=== PATIENT | female | born 1930 | race African-American/Black ===

== ENCOUNTER 2017-03-19 09:12 | Inpatient (IN) ==
--- NOTE | 2017-03-19 09:34 | EKG Report ---
Stationary ECG Study [facility] ER Test Date: 03/19/2017 9:27:13 AM Pat Name: PJ LAW Department: Room: Gender: F [employer] Specialist: Aracelis Gongora : 1930 Requested by: Gumaro Schuster Order Number: [id number] Reading MD: UYEN PHILLIPS Intervals [place] Rate: 72 P: 58 CA: 310 QRS: -48 QRSD: 109 T: -26 QT: 398 QTc: 422 Interpretive Statements SINUS RHYTHM WITH FIRST DEGREE AV BLOCK ABNORMAL LEFT AXIS DEVIATION NONSPECIFIC T WAVE ABNORMALITY Electronically Signed On 03-19-17 10:30:45 CDT by UYEN PHILLIPS [email or web address]
--- NOTE | 2017-03-19 10:43 | XRay Report ---
Exam: XR chest 2V Date: 03/19/2017 9:31 AM Indication: Shortness of breath Comparison: 05/06/2016 Technical: PA lateral Findings: Mild cardiac enlargement present. Low volume effusions and likely change infiltrates are present bilaterally. ASVD is present. There is calcification in the right paratracheal region. Epidural catheter leads are present in the mid thoracic spine. No pneumothorax. Impression: 1. Bibasilar atelectatic change this could represent infiltrate or possibly a component of the mild CHF. This does represent a change compared to previous study. I favor this to represent a component of cardiac decompensation 2. Cardiomegaly 3. Stable stable epidural catheter leads. PROCEDURE INTERPRETED AT [facility] DEPARTMENT OF RADIOLOGY Final Report Signed by: Dr. Tyler Gilbert
--- NOTE | 2017-03-19 10:53 | Emergency Department Note ---
ICong Hilary, am scribing for, and in the presence of, Tiana Peoples DO 10: 50. IShelton Debra, DO, personally performed the services described in this documentation, ascribed by Halima Gar in my presence, and it is both accurate and complete . Arrival - Arrival Chief Complaint: Shortness of Breath Stated Complaint: sob ED Nursing Triage Note: Pt c/o SOB, Nausea, vomiting, and broke out into a sweat this am. Denies CP. Mode of Arrival: Wheelchair Limitations: No Limitations Source: Patient, RN Notes Reviewed - History of Present Illness HPI Narrative: Pt is a 86 y/o female preseting to the ED with c/o diaphoresis which onset around 0700. Pt states that she thinks she had a heart attack because she woke up sweating. She confirms diaphoresis, nausea and vomiting but denies chest pain or abdominal pain. No other complaints or problems stated in the ED. Onset (ago): hour(s) Consistency: constant Severity: mild Severity scale (1-10): 1 Allergies/Adverse Reactions: Allergies Allergy/AdvReac Type Severity Reaction Status Date / Time No Known Allergies Allergy Verified 10/27/16 09:16 Home Medications: Home Medications Medication Instructions Recorded Confirmed Type Apixaban [Eliquis] 1 tablet PO BID 09/23/15 03/19/17 History Aspirin EC Tab 81 mg PO DAILY 09/23/15 03/19/17 History amLODIPine [Norvasc] 10 mg PO DAILY 09/23/15 03/19/17 History Pantoprazole Tab [Protonix Tab] 40 mg PO DAILY 05/03/16 03/19/17 History Cetirizine HCl [Cetirizine Tab] 10 mg PO DAILY 03/13/17 03/19/17 History Dicyclomine Cap/Tab [Bentyl 20 mg PO QID PRN #20 tablet 03/13/17 03/19/17 Rx Cap/Tab] Metoprolol Succinate Xl [Toprol Xl] 25 mg PO DAILY 03/13/17 03/19/17 History Ondansetron [Ondansetron Odt] 8 mg PO Q4H PRN #10 tab.rapdis 03/13/17 03/19/17 Rx traMADol TAB [Ultram] 50 mg PO Q6H PRN 03/13/17 03/19/17 History Review of System - Review of System 12 point system: reviewed and no additional remarkable complaints except as stated - Review of System Constitutional: Absent: chills, fever Cardiovascular: Absent: chest pain Gastrointestinal: Present: nausea, vomiting. Absent: abdominal pain Medical,Surgical,& Family Hx - Medical History Cardio: History of: Cardiac Dysrhythmia (atrial fibrillation, paroxysmal), Hypertension, [place] Psychological: History of: Anxiety Disorders, Psychiatric Problems (Nervous breakdown x2.) Neurology: History of: Cerebrovascular Accident, TIA HEENT: History of: HEENT Problems (Past nosebleeds (severe)) Endocrine: History of: Dyslipidemia - Family History Family History: Reports;: Family Hypertension - Social History Smoking Status: Never smoker Exam Vital Signs: Vital Signs Temperature 97.8 F 03/19/17 10:56 Pulse Rate 72 03/19/17 10:56 Respiratory Rate 22 03/19/17 10:56 Blood Pressure 146/69 03/19/17 10:56 O2 Sat by Pulse Oximetry 87 L 03/19/17 09:25 - General General appearance: alert, in no apparent distress - Head Head exam: Present: atraumatic, normocephalic - Eye Eye exam: Present: normal appearance, PERRL, EOMI - ENT ENT exam: Present: mucous membranes moist, TM's normal bilaterally. Absent: mucous membranes dry - Neck Neck exam: Present: full ROM, trachea midline. Absent: tenderness - Chest Chest inspection: Present: symmetric chest wall rise. Absent: tenderness - Respiratory Respiratory exam: Present: wheezes. Absent: normal lung sounds bilaterally ( expiratory wheezing, greater on the left than right), respiratory distress - Cardiovascular Cardiovascular exam: Present: regular rate, normal rhythm, normal heart sounds. Absent: murmur, rubs, gallop - Abdominal Exam Abdominal exam: Present: soft, normal bowel sounds. Absent: distention, tenderness - Extremities Exam Extremities exam: Present: full ROM, pedal edema (+1 non pitting edema). Absent : tenderness - Back Exam Back exam: Present: full ROM. Absent: tenderness - Neurological Exam Neurological exam: Present: alert, oriented X3, CN II-XII intact. Absent: motor sensory deficit - Psychiatric Psychiatric exam: Present: normal affect, normal mood - Skin Skin exam: Present: warm, dry, intact, normal color. Absent: rash Course Course Narrative: spoke with hospitalist, who will see pt. Results - Labs CBC & BMP: 03/19/17 10:42 03/19/17 10:42 Lab Results: I have reviewed the patients labs Labs: Laboratory Tests 03/19/17 03/19/17 10:42 10:42 WBC 9.6 RBC 4.80 Hgb 12.6 Hct 39.7 MCV 82.7 L MCH 26 L MCHC 31.7 L RDW 18.6 H Plt Count 187 Neut % (Auto) 78.3 H Lymph % (Auto) 10.4 L Neut # (Auto) 7.5 H Lymph # (Auto) 1.0 L [place] # (Auto) 1.0 H INR 1.1 PT Patient/Control Mix 11.4 D-Dimer, Quantitative 1.1 Circ Anticoag PTT 31.3 Laboratory Tests 03/19/17 03/19/17 10:42 10:42 Sodium 139 Potassium 4.0 Chloride 104 Carbon Dioxide 29 BUN 11 Troponin I 0.271 H B-Natriuretic Peptide 1026 H Total Protein 6.7 Albumin 3.3 L Albumin/Globulin Ratio 0.9 L - Diagnostic Findings Procedure: Chest x-ray: report reviewed by me (1. Bibasilar atelectatic change this could represent infiltrate or possibly a component of the mild CHF. This does represent a change compared to previous study. I favor this to represent a component of cardiac decompensation 2. Cardiomegaly 3. Stable stable epidural catheter leads.) Disposition Clinical Impression: Congestive heart failure, Elevated troponin Case discussed with: patient, patient's family Disposition: Still a Patient Condition: Stable Time of Disposition: 12:13
[2017-03-19 10:59] LABS: Basophils % 0.3 % (0.0-0.8); Eosinophils # 0.1 10*3/uL (0.0-0.87); Eosinophils % 0.6 % (0.00-10.9); Hematocrit 39.7 VOL% (35.7-47.0); Hemoglobin 12.6 GM/DL (12.0-16.0); Immature Granulocytes % 0.5 %; Immature Granulocytes Absolute 0.05 #; Lymphocytes % 10.4 % (21.3-54.2); Mean Corpuscular HGB Conc 31.7 GM/DL (32-36); Mean Corpuscular Hemoglobin 26 PG (27-34); Mean Corpuscular Volume 82.7 FL (87-102); Monocytes % 9.9 % (1.7-12.7); Neutrophils # 7.5 10*3/uL (1.4-7.4); Neutrophils % 78.3 % (38.7-73.9); Platelet Count 187 T/CUMM (130-400); Red Cell Distribution Width 18.6 % (9.3-17.3); White Blood Count 9.6 T/CUMM (4-12)
[2017-03-19 11:24] LABS: D-Dimer 1.1 MG/L FEU; INR 1.1; PT Patient Result 11.4 SECS; Partial Thromboplastin Time 31.3 SECS (0-40)
[2017-03-19 11:34] LABS: Alanine Aminotransferase 15 U/L (13-56); Albumin 3.3 G/DL (3.4-5.0); Alkaline Phosphatase 91 U/L (45-117); Aspartate Amino Transferase 20 U/L (0-37); Blood Urea Nitrogen 11 MG/DL (7-18); Calcium 8.8 MG/DL (8.5-10.1); Glucose 99 MG/DL (74-106); Osmolality,Calculated 275.5 MOS/KG (273-304); Sodium 139 MMOL/L (136-145); Total Protein 6.7 G/DL (6.4-8.3)
[2017-03-19 11:39] LABS: Troponin I Only 0.271 NG/ML (0.00-0.045)
[2017-03-19] MEDS ORDERED: ENOXAPARIN 60 MG/0.6 ML SYRINGE SUBCUT STA (12:12)
[2017-03-19] MEDS ORDERED: ENOXAPARIN 60 MG/0.6 ML SYRINGE ONE (12:21)
--- NOTE | 2017-03-19 12:52 | Hospitalist History & Physical ---
Assessment and Plan - Time spent with patient Time spent with patient: Greater than 30 minutes (1) Congestive heart failure Status: Acute Assessment and plan: Elevated BNP, shortness of breath this a.m. Admit to hospitalist services. Will consult Cardiology (Dr Ureña patient). Will continue home medications and place on Telemetry for continous monitoring. PRN zofran for nausea. oxygen. diuretics. Will discuss with Dr Espinoza for further recommendations for management. Current Visit: Yes (2) Elevated troponin Status: Acute Assessment and plan: Consulted Cardiology. (patient of dr Ureña), Lovenox given in the ER, will repeat tropinin series and a.m. labs, EKG, and DVT prophylaxis. Current Visit: Yes (3) Nausea Status: Acute Assessment and plan: PRN zofran for coverage of any new nausea. Current Visit: No History of Present Illness Chief complaint: shortness of breath History of present illness: Ms. Hobson is a very pleasant 86 year old AA female presented to [facility] ED for further evaluation of shortness of breath. She sat up this a.m. on the side of the bed about 7 this morning, "felt short of breath and uncomfortable". She went to take a bath but did not make her feel better, continued to feel short of breath and started to feel "sweaty, nausea, and gagged a couple of times but was unable to vomit". Medical history Afib ( paroxymal), hypertension, [place], anxiety disorder, TIA, CVA, dyslipidemia. She reported after starting to feel sweaty and nausea she ask her sister to bring her to the ED because she was concerned about having a heart attack again. At the time of ED presentation patient was evaluated and noted stable Vital signs without any fever. EKG ws reviewed by Dr Peoples and was noted to have regular rate and rhythm. Labs: WBC 9.6, hemoglobin 12.6, hematocrit 39.7, platelets 187. INR 1.1, PT 11.4, PTT 31.3, d-dimer 1.1. Sodium 139, potassium 4.0, chloride 104, carbon dioxide 29, anion gap 10, BUN 11, creatinine 1.0, AST 20, ALT 15, alkaline phosphate 91, CK-MB 1.7, troponin 0.271, BNP 1026, albumin 3.3. chest xray: Bibasilar atelectatic change this could represent infiltrate or possible component of mild CHF, this does represent a change compared to previous study, favor to represent component of cardiac decompensation, cardiomegaly, stable epidural catheter leads. After brief discussion with Dr Peoples Er physician and Dr Espinoza, Hospitalist physician, the patient will be admitted to the hospitalist services for further evaluation. Cardiology will be consulted, patient of Dr Ureña. Medications will be reviewed and reconciliation to follow. Code Status: Full Code. Home Medications Medication Instructions Recorded Confirmed Type Apixaban [Eliquis] 1 tablet PO BID 09/23/15 03/19/17 History Aspirin EC Tab 81 mg PO DAILY 09/23/15 03/19/17 History amLODIPine [Norvasc] 10 mg PO DAILY 09/23/15 03/19/17 History Pantoprazole Tab [Protonix Tab] 40 mg PO DAILY 05/03/16 03/19/17 History Cetirizine HCl [Cetirizine Tab] 10 mg PO DAILY 03/13/17 03/19/17 History Dicyclomine Cap/Tab [Bentyl 20 mg PO QID PRN #20 tablet 03/13/17 03/19/17 Rx Cap/Tab] Metoprolol Succinate Xl [Toprol Xl] 25 mg PO DAILY 03/13/17 03/19/17 History Ondansetron [Ondansetron Odt] 8 mg PO Q4H PRN #10 tab.rapdis 03/13/17 03/19/17 Rx traMADol TAB [Ultram] 50 mg PO Q6H PRN 03/13/17 03/19/17 History Allergies Allergy/AdvReac Type Severity Reaction Status Date / Time No Known Allergies Allergy Verified 10/27/16 09:16 Medical,Surgical,& Family Hx - Medical History Cardio: History of: Cardiac Dysrhythmia (atrial fibrillation, paroxysmal), Hypertension, [place] Psychological: History of: Anxiety Disorders, Psychiatric Problems (Nervous breakdown x2.) Neurology: History of: Cerebrovascular Accident, TIA HEENT: History of: HEENT Problems (Past nosebleeds (severe)) Endocrine: History of: Dyslipidemia - Family History Family History: Reports;: Family Hypertension - Social History Smoking Status: Never smoker Frequency of Alcohol Use: None Type of Drug Use: None Review of systems: ROS completed and pertinent positives and negatives documented in the HPI. Exam - Constitutional Vitals: Period Temp Pulse Resp BP Sys/Bridges Pulse Ox Last 24 Hr 97.8 F-97.8 F 72-72 22-22 146-146/69-69 87 General appearance: no acute distress, over weight - Head Head exam: Present: normal inspection - Eye Eye exam: Present: EOMI Pupils: Present: SARI - Neck Neck exam: Present: normal inspection - Respiratory Respiratory exam: Present: clear to auscultation bilaterally. Absent: accessory muscle use - Cardiovascular Cardiovascular exam: Present: regular rate and rhythm - GI/Abdominal GI/Abdominal exam: Present: normal bowel sounds, soft. Absent: tenderness, rebound - Extremities Exam Extremities exam: Present: edema (left lower leg 1+, right lower leg trace edema ) - Neurological Exam Neurological exam: Present: alert, oriented X3 - Psychiatric Psychiatric exam: Present: normal affect, normal mood - Skin Skin exam: Present: normal color, warm, dry Results - Labs CBC & BMP: 03/19/17 10:42 03/19/17 10:42 Lab Results: I have reviewed the past 24 hour labs - Diagnostic Findings Procedure: Chest x-ray: report reviewed by me (Bibasilar atelectatic change this could represent infiltrate or possible a component of the mild CHF, this does represent a change compared to previous study, does represent a change compared to previous study, I favor this to represent a component of cardiac decompensation, cardiomegaly, stable epidural catheter lead.)
[2017-03-19] MEDS ORDERED: MORPHINE 2 MG/1 ML SYRINGE IV PRN (13:21)
[2017-03-19] MEDS ORDERED: ZALEPLON 5 MG CAPSULE PO PRN (13:21)
[2017-03-19] MEDS ORDERED: ACETAMINOPHEN 325 MG TABLET PO PRN (13:21)
[2017-03-19] MEDS ORDERED: DOCUSATE SODIUM 100 MG CAPSULE PO PRN (13:21)
[2017-03-19] MEDS ORDERED: DICYCLOMINE 20 MG TABLET PO PRN (13:27)
[2017-03-19] MEDS ORDERED: ONDANSETRON ODT 4 MG TABLET PO PRN (13:27)
[2017-03-19 15:52] LABS: Troponin I Only 0.269 NG/ML (0.00-0.045)
--- NOTE | 2017-03-19 16:21 | Cardiology Consult Note ---
Epi Santo Vanessa, RN, am scribing for, and in the presence of, Donato Kelly MD 16:21. Assessment and Plan - Time spent with patient Time spent with patient: Greater than 30 minutes (Date of assessment, planning, documentation, and medication review) (1) Congestive heart failure Status: Acute Assessment and plan: Chronicity and severity of this is unknown. Check echocardiogram. Current Visit: Yes (2) Afib Status: Chronic Assessment and plan: History of paroxysmal atrial fibrillation. Patient has been maintained in a normal sinus rhythm since cardioversion in 2014. Continue low-dose Eliquis for stroke prevention. Current Visit: No Qualifiers: Atrial fibrillation type: persistent Qualified Code(s): I48.1 - Persistent atrial fibrillation (3) History of CVA (cerebrovascular accident) Status: Chronic Assessment and plan: Stable at this time. Current Visit: Yes (4) GERD (gastroesophageal reflux disease) Status: Chronic Assessment and plan: Continue PPI. Current Visit: No (5) HTN (hypertension) Status: Chronic Assessment and plan: Suboptimally controlled. Adjust antihypertensive medications. Current Visit: No (6) PAD (peripheral artery disease) Status: Chronic Assessment and plan: Known 90% ostial right common iliac stenosis with probable disease below the knees. She does have some claudication, does not ambulate much, but does use a walker for assistance. Current Visit: Yes (7) Hx of coronary artery disease Status: Chronic Assessment and plan: Previous NSTEMI. Per cardiac catheterization in September 2014, proximal RCA occlusion not amenable to PCI. Continue medical management. Current Visit: Yes History of Present Illness - Data of Consult Patient: known to practice within the last 3 years Consult date: 03/19/17 Requesting Physician: Jodie Espinoza - Consult Narrative Reason for consult: congestive heart failure History of present illness: PRIMARY PLATE STACKER: DR. KAM Ms. Hobson is a 86 year old black female with risk factors significant for: age, hypertension, dyslipidemia, known history of CAD, and previous tobacco use. Past medical history include persistent atrial fibrillation, peripheral arterial disease with claudication, CVA 2, GERD, anxiety. Anticoagulated with low-dose Eliquis. She is status post non-ST elevation [place] in September 2014 when cardiac cath revealed proximal RCA occlusion not amenable to PCI. At time of cath, LV ejection fraction was 50%. She was last evaluated by Dr. Kam at [facility] in January 2017, and at time of visit, she was having no anginal complaint or overt signs or symptoms of heart failure. Noted she has chronic ( mild) bilateral lower extremity edema, left greater than right. Patient has been maintained in a sinus rhythm status post cardioversion in 2014, and at time of visit amlodipine dosage was decreased and beta-lilia increase to promote normal sinus rhythm. [facility] complaining of fatigue, nausea and vomiting, shortness of breath with onset around 7 AM. Patient was concern she was experiencing a heart attack because she woke up sweating which prompted her presentation to emergency room. Reports normally using 3 pillows to sleep with at night, and she has not had to increase the amount she uses. EKG negative for acute ischemic finding. Chest x-ray with cardiomegaly and bibasilar atelectatic changes, suggestive of mild CHF. BNP 1026. Troponin 0.271. Admitted per hospital medicine to telemetry unit for further observation and treatment. Cardiology asked to see for further management of CHF. Patient seen and examined. She is awake and alert, and she is in no acute respiratory distress at time of exam. Denies chest pain shortness of breath. Reports productive cough with white sputum production for approximately 3 years with no recent change in color. She does not feel she is having any increase or worsening in severity of lower extremity edema. Reports earlier this morning when she woke up and felt short of breath, she also felt like she was being "gagged," felt nervous, and wanted to make sure she wasn't having a heart attack. Reports with previous AZ, symptoms included chest pain and fatigue. BP 175/95. Telemetry monitoring with sinus rhythm, pulse rate 70s. Labs reviewed. H&H stable. Electrolytes within acceptable range. Repeat troponin level decreased and to 0.271. D-dimer normal. This patient was admitted with exacerbation of heart failure we will increase diuresis and offloading. CC: Jodie Espinoza MD - Home Medications and Allergies Home Medications: Home Medications Medication Instructions Recorded Confirmed Type Apixaban [Eliquis] 1 tablet PO BID 09/23/15 03/19/17 History Aspirin EC Tab 81 mg PO DAILY 09/23/15 03/19/17 History amLODIPine [Norvasc] 10 mg PO DAILY 09/23/15 03/19/17 History Pantoprazole Tab [Protonix Tab] 40 mg PO DAILY 05/03/16 03/19/17 History Cetirizine HCl [Cetirizine Tab] 10 mg PO DAILY 03/13/17 03/19/17 History Dicyclomine Cap/Tab [Bentyl 20 mg PO QID PRN #20 tablet 03/13/17 03/19/17 Rx Cap/Tab] Metoprolol Succinate Xl [Toprol Xl] 25 mg PO DAILY 03/13/17 03/19/17 History Ondansetron [Ondansetron Odt] 8 mg PO Q4H PRN #10 tab.rapdis 03/13/17 03/19/17 Rx traMADol TAB [Ultram] 50 mg PO Q6H PRN 03/13/17 03/19/17 History Allergies/Adverse Reactions: Allergies Allergy/AdvReac Type Severity Reaction Status Date / Time No Known Allergies Allergy Verified 10/27/16 09:16 - Constitutional Constitutional: Present: excessive sweating, fatigue, frequent falls, weakness. Absent: chills, fever(s), stops breathing during sleep, weight gain, weight loss - EENT Eyes: Present: requires corrective lense. Absent: blurry vision, loss of vision Ears: Present: decreased hearing. Absent: tinnitus Nose, mouth and throat: Present: dysphagia, sinus pressure. Absent: epistaxis, hoarseness, nasal congestion, throat swelling, vertigo - Cardiovascular Cardiovascular: Present: claudication, dyspnea, dyspnea on exertion, PND. Absent: chest pain at rest, chest pain with activity, diaphoresis, edema, radiating jaw, neck or arm pain, lightheadedness, orthopnea, palpitations - Respiratory Respiratory: Present: cough, dyspnea on exertion. Absent: dyspnea, hemoptysis, pain on inspiration, change in phlegm color - Gastrointestinal Gastrointestinal: Present: dysphagia, nausea, vomiting. Absent: abdominal pain , bloating, change in bowel habits, constipation, diarrhea, early satiety, hematemesis, hematochezia, melena - Genitourinary Genitourinary: Absent: dysuria, flank pain, hematuria - Musculoskeletal Musculoskeletal: Present: arthralgias, limited range of motion - Neurological Neurological: Absent: abnormal gait, confusion, dizziness, syncope - Psychiatric Psychiatric: Present: panic attacks. Absent: anxiety, confusion, depression - Endocrine Endocrine: Absent: cold intolerance, heat intolerance - Hematologic/Lymphatic Hematologic/Lymphatic: Absent: easy bleeding, easy bruising Medical,Surgical,& Family Hx - Medical History Cardio: History of: Cardiac Dysrhythmia (atrial fibrillation, paroxysmal), CHF, CAD, Hypertension, [place] No history of: Valvular Heart Disease Psychological: History of: Anxiety Disorders, Psychiatric Problems (Nervous breakdown x2.) Neurology: History of: Cerebrovascular Accident, TIA No history of: Dementia, Seizures HEENT: History of: HEENT Problems (Past nosebleeds (severe)) Endocrine: History of: Dyslipidemia No history of: Diabetes Mellitus (IDDM), Diabetes Mellitus (NIDDM), Thyroid Disorder Respiratory: History of: COPD No history of: Obstructive Sleep Apnea Gastrointestinal: History of: GERD Musculoskeletal: History of: Back/Neck Problems Other: No history of: Cancer - Surgical History Cardiac Surgeries: Sugical HX of: Cardiac Catheterization Patient Denies: Cardiac Surgery, Internal Defibrillator - Family History Family History: Reports;: Family Hypertension - Social History Smoking Status: Former smoker Frequency of Alcohol Use: None Type of Drug Use: None Functional capacity: uses cane/walker Physical Examination Vital Signs Temp Pulse Resp BP Pulse Ox 97.8 F 72 22 146/69 87 L 03/19/17 09:25 03/19/17 09:25 03/19/17 09:25 03/19/17 09:25 03/19/17 09:25 General: Present: No Apparent Distress, Other (elderly) HEENT: Present: PERRL, Normocephaly, Mucus Membranes Moist. Absent: Pallor Neck: Present: Supple Neck, Midline Trachea, No JVD/HJR, No Masses, No Bruit Cardiac: Present: Reg Rate and Rhythm, No Murmur. Absent: Tachycardia, Bradycardia Lungs: Present: Normal Exam, Bibasilar Rales, Wheezes (bilateral; expiratory), Oxygen Neuro: Present: Grossly Intact. Absent: Numbness, Weakness, Resting Tremor, Essential Tremor Abdomen: Present: Soft, Active Bowel Sounds, No Masses, No Pulsations/Bruits. Absent: Ascites, Tender, Firm, Distended Skin: Present: Clear. Absent: Rash, Suspicious Lesions Musculoskeletal: Present: Decreased Range of Motion Extremities: Present: No Clubbing, No Cyanosis, +1 Edema (left lower extremity ( chronic)), Capillary Refill (normal) Result/EKG - Labs CBC & BMP: 03/19/17 10:42 03/19/17 10:42 Lab Results: I have reviewed the past 24 hour labs Labs: Laboratory Results - last 24 hr 03/19/17 03/19/17 03/19/17 10:42 10:42 10:42 WBC 9.6 RBC 4.80 Hgb 12.6 Hct 39.7 MCV 82.7 L MCH 26 L MCHC 31.7 L RDW 18.6 H Plt Count 187 MPV 10.0 Neut % (Auto) 78.3 H Lymph % (Auto) 10.4 L [place] % (Auto) 9.9 Eos % (Auto) 0.6 Baso % (Auto) 0.3 Neut # (Auto) 7.5 H Lymph # (Auto) 1.0 L [place] # (Auto) 1.0 H Eos # (Auto) 0.1 Baso # (Auto) 0.0 Immature Gran % 0.5 Nucleated RBC % 0.0 Immature Gran # 0.05 Nucleated RBCs # 0.00 INR 1.1 PT Patient/Control Mix 11.4 D-Dimer, Quantitative 1.1 Circ Anticoag PTT 31.3 Sodium 139 Potassium 4.0 Chloride 104 Carbon Dioxide 29 Anion Gap 10.0 BUN 11 Creatinine 1.00 GFR Calculation 56 BUN/Creatinine Ratio 11.00 Glucose 99 Calculated Osmolality 275.5 Calcium 8.8 Total Bilirubin 0.50 AST 20 ALT 15 Alkaline Phosphatase 91 Total Creatine Kinase 58 CK-MB (CK-2) 1.7 Troponin I 0.271 H B-Natriuretic Peptide Total Protein 6.7 Albumin 3.3 L Globulin 3.4 Albumin/Globulin Ratio 0.9 L 03/19/17 10:42 WBC RBC Hgb Hct MCV MCH MCHC RDW Plt Count MPV Neut % (Auto) Lymph % (Auto) [place] % (Auto) Eos % (Auto) Baso % (Auto) Neut # (Auto) Lymph # (Auto) [place] # (Auto) Eos # (Auto) Baso # (Auto) Immature Gran % Nucleated RBC % Immature Gran # Nucleated RBCs # INR PT Patient/Control Mix D-Dimer, Quantitative Circ Anticoag PTT Sodium Potassium Chloride Carbon Dioxide Anion Gap BUN Creatinine GFR Calculation BUN/Creatinine Ratio Glucose Calculated Osmolality Calcium Total Bilirubin AST ALT Alkaline Phosphatase Total Creatine Kinase CK-MB (CK-2) Troponin I B-Natriuretic Peptide 1026 H Total Protein Albumin Globulin Albumin/Globulin Ratio - Diagnostic Findings Procedure: Chest x-ray: image reviewed by me, report reviewed by me - EKG EKG results: interpreted by me, no acute changes EKG shows: sinus rhythm (First-degree AVB) Quality Measures - VTE Contraindication to Pharmacological VTE Prophylaxis: Already on Theraputic Agent , No Prophylaxis Needed Robin Santo Wesley, MD, personally performed the services described in this documentation, ascribed by Christy Chowdary RN in my presence, and it is both accurate and complete 621 .
[2017-03-19] MEDS: FUROSEMIDE 40 MG/4 ML VIAL IV SCH (18:32)
[2017-03-19 20:39] LABS: Troponin I Only 0.276 NG/ML (0.00-0.045)
[2017-03-19] MEDS: traMADol 50 MG TABLET PO PRN (21:10)
[2017-03-19] MEDS: APIXABAN 2.5 MG TABLET PO SCH (21:11)
[2017-03-19] MEDS: LOSARTAN 25 MG TABLET PO SCH (21:11)
[2017-03-20 02:24] LABS: Calcium 9.2 MG/DL (8.5-10.1); Osmolality,Calculated 279.4 MOS/KG (273-304); Potassium 3.8 MMOL/L (3.5-5.1)
[2017-03-20 02:34] LABS: Troponin I Only 0.266 NG/ML (0.00-0.045)
[2017-03-20 02:37] LABS: Albumin 3.4 G/DL (3.4-5.0); Bilirubin,Total 0.6 MG/DL (0.2-1.0); Calcium 9.1 MG/DL (8.5-10.1); Magnesium 2.1 MG/DL (1.8-2.4); Osmolality,Calculated 279.4 MOS/KG (273-304); Potassium 3.8 MMOL/L (3.5-5.1); Risk Ratio 4.45; Thyroid Stimulating Hormone 0.857 uIU/ml (0.358-3.74); Total Protein 6.8 G/DL (6.4-8.3); VLDL CHOLESTEROL 22.4 MG/DL
[2017-03-20] MEDS: ASPIRIN EC 81 MG TABLET PO SCH (09:19)
[2017-03-20] MEDS: amLODIPine 10 MG TABLET PO SCH (09:19)
[2017-03-20] MEDS: FUROSEMIDE 40 MG/4 ML VIAL IV SCH ×2 (09:19→16:35)
[2017-03-20] MEDS: PANTOPRAZOLE 40 MG TABLET PO SCH (09:20)
[2017-03-20] MEDS: CETIRIZINE 10 MG TABLET PO SCH (09:20)
[2017-03-20] MEDS: LOSARTAN 25 MG TABLET PO SCH ×2 (09:20→20:54)
[2017-03-20] MEDS: APIXABAN 2.5 MG TABLET PO SCH ×2 (09:20→20:54)
[2017-03-20] MEDS: METOPROLOL SUCCINATE XL 25 MG TABLET PO SCH (09:20)
--- NOTE | 2017-03-20 10:32 | ECHO Report ---
Elizabeth Hobson Exam Date: 03/20/2017 09:40 Referring Physician: Technologist: herrera Lino ARDMS, RVT Age: 86 Ht (in): 63 Wt (lb): 143 Gender: F Exam Location: [facility] Echo Indications: Essential (primary) hypertension, Atrial fibrillation, CVA, PAD, CHF, Elevated troponin BP: 144 / 63 HR: 68 Rhythm: Sinus Technical Quality: Good IMPRESSIONS Normal left ventricular cavity size. Mild to moderate left ventricular hypertrophy. Left ventricular ejection fraction is estimated at 55 %. The right ventricle is normal in size and function. The right atrium is normal in size. The left atrium is normal in size. Morphologically normal mitral valve. Mild mitral valve regurgitation. Aortic valve sclerosis without stenosis. Moderate aortic valve regurgitation. Morphologically normal tricuspid valve. Mild tricuspid valve regurgitation. Tricuspid regurgitation velocities suggest a PAP of 60 mmHg. Morphologically normal pulmonic valve. Mild pulmonary valve regurgitation. Normal pericardium without effusion. Normal ascending aorta dimension. MEASUREMENTS (Male / Female) Normal Values 2D ECHO LV Diastolic Diameter PLAX 4.1 cm 4.2 - 5.9 / 3.9 - 5.3 cm LV Systolic Diameter PLAX 2.9 cm LV Fractional Shortening PLAX 29.0 % IVS Diastolic Thickness 1.1 cm 0.6 - 1.0 / 0.6 - 0.9 cm LVPW Diastolic Thickness 1.4 cm 0.6 - 1.0 / 0.6 - 0.9 cm RV Internal Dim ED PLAX 2.9 cm Aortic Root Diameter 3.2 cm LA Systolic Diameter LX 3.9 cm 3.0 - 4.0 / 2.7 - 3.8 cm DOPPLER TR Peak Velocity 353.0 cm/s TR Peak Gradient 49.8 mmHg FINDINGS Left Ventricle Normal left ventricular cavity size. Mild to moderate left ventricular hypertrophy. Left ventricular ejection fraction is estimated at 55 %. Right Ventricle The right ventricle is normal in size and function. Right Atrium The right atrium is normal in size. Left Atrium The left atrium is normal in size. Mitral Valve Morphologically normal mitral valve. Mild mitral valve regurgitation. Aortic Valve Aortic valve sclerosis without stenosis. Moderate aortic valve regurgitation. Tricuspid Valve Morphologically normal tricuspid valve. Mild tricuspid valve regurgitation. Tricuspid regurgitation velocities suggest a PAP of 60 mmHg. Pulmonic Valve Morphologically normal pulmonic valve. Mild pulmonary valve regurgitation. Pericardium Normal pericardium without effusion. Aorta Normal ascending aorta dimension. Donato Kelly MD (Electronically Signed) Final Date: 20 March 2017 10:31
[2017-03-20] MEDS: traMADol 50 MG TABLET PO PRN ×2 (11:57→20:54)
--- NOTE | 2017-03-20 15:10 | Cardiology Progress Note ---
Epi Santo Vanessa, RN, am scribing for, and in the presence of, Donato Kelly MD 15:10. Assessment and Plan - Time spent with patient Time spent with patient: Greater than 30 minutes (1) Congestive heart failure Status: Acute Assessment and plan: Chronicity and severity of this is unknown. 2D echocardiogram ordered, and we will review this today. Continue diuresis. Monitor BMP and renal function. Monitor daily weights, strict I/O. Current Visit: Yes (2) Afib Status: Chronic Assessment and plan: History of paroxysmal atrial fibrillation. Patient has been maintained in a normal sinus rhythm since cardioversion in 2014. Continue low-dose Eliquis for stroke prevention. Monitor for bleeding. Current Visit: No Qualifiers: Atrial fibrillation type: persistent Qualified Code(s): I48.1 - Persistent atrial fibrillation (3) History of CVA (cerebrovascular accident) Status: Chronic Assessment and plan: Stable at this time. Current Visit: Yes (4) GERD (gastroesophageal reflux disease) Status: Chronic Assessment and plan: Continue PPI. Current Visit: No (5) HTN (hypertension) Status: Chronic Assessment and plan: Suboptimally controlled. Adjust antihypertensive medications. Current Visit: No (6) PAD (peripheral artery disease) Status: Chronic Assessment and plan: Known 90% ostial right common iliac stenosis with probable disease below the knees. She does have some claudication, does not ambulate much, but does use a walker for assistance. Current Visit: Yes (7) Hx of coronary artery disease Status: Chronic Assessment and plan: Previous NSTEMI. Per cardiac catheterization in September 2014, proximal RCA occlusion not amenable to PCI. Continue medical management. 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 KAM Ms. Hobson is a 86 year old black female with risk factors significant for: age, hypertension, dyslipidemia, known history of CAD, and previous tobacco use. Past medical history include persistent atrial fibrillation, peripheral arterial disease with claudication, CVA 2, GERD, anxiety. Anticoagulated with low-dose Eliquis. She is status post non-ST elevation IL in September 2014 when cardiac cath revealed proximal RCA occlusion not amenable to PCI. At time of cath, LV ejection fraction was 50%. She was last evaluated by Dr. Kam at [facility] in January 2017, and at time of visit, she was having no anginal complaint or overt signs or symptoms of heart failure. Noted she has chronic ( mild) bilateral lower extremity edema, left greater than right. Patient has been maintained in a sinus rhythm status post cardioversion in 2014. Patient was admitted to [facility] telemetry unit for presenting to the emergency room complaining of fatigue, nausea vomiting, shortness of breath with onset just a few hours prior to arrival. Patient was concerned she was experiencing a heart attack because she woke up sweating. EKG negative for acute ischemic finding. Chest x-ray cardiomegaly and bibasilar atelectatic changes, suggestive of CHF. BNP 1026. Normal d-dimer. Cardiology was consulted to see patient for further management of CHF. March: Ms. Hobson is awake and alert this morning. No acute respiratory distress noted. Reports improvement in her shortness of breath this morning. No chest pain or tightness, nausea, or vomiting. Patient's peripheral IV is being placed currently per nursing staff admits so she can receive her IV Lasix. Reports fair amount urine output since initiation of diuresis yesterday. Labs reviewed. Electrolytes within acceptable range. FLP this morning unremarkable. TSH 0.857. Creatinine stable 1.0, GFR 56. Troponin levels have remained flat and peaked at 0.276. SBP 145-170 mmHg. Sinus rhythm per telemetry monitoring without disturbance. Echocardiogram pending this morning. Patient is improved. She has diuresed significantly according her overnight although her eyes and nose do not match that. She is doing well. Electrolytes are stable and our plan will be to continue diuresis through the day today and then hopefully switch her to p.o. medicines tomorrow hopefully home either tomorrow or the next day. I have discussed in detail the particulars of this case and I have examined the patient and reviewed the patient's chart both current and old. I was directly involved in the patient's evaluation and management and I completely agree with Christy Chowdary RN regarding this patient's evaluation and treatment plan. Exam (Progress Note) - Constitutional Vitals: Period Temp Pulse Resp BP Sys/Bridges Pulse Ox Last 24 Hr 97.8 F-99.7 F 61-80 16-22 144-175/63-95 87-96 Exam: General: Present: No Apparent Distress, Other (elderly) HEENT: Present: PERRL, Normocephaly, Mucus Membranes Moist. Absent: Pallor Neck: Present: Supple Neck, Midline Trachea, No JVD/HJR, No Masses, No Bruit Cardiac: Present: Reg Rate and Rhythm, No Murmur. Absent: Tachycardia, Bradycardia Lungs: Present: Bibasilar Rales, Wheezes (bilateral; expiratory-improved today) , Not using supplemental oxygen this morning. Neuro: Present: Grossly Intact. Absent: Numbness, Weakness, Resting Tremor, Essential Tremor Abdomen: Present: Soft, Active Bowel Sounds, No Masses, No Pulsations/Bruits. Absent: Ascites, Tender, Firm, Distended Skin: Present: Clear, warm, dry. Absent: Rash, Suspicious Lesions, diaphoresis , cyanosis Musculoskeletal: Present: Full ROM. She is having some cramping in her left hand this morning. Extremities: Present: No Clubbing, No Cyanosis, +1 Edema (left lower extremity ( chronic), Capillary Refill (normal) Result/EKG - Labs CBC & BMP: 03/19/17 10:42 03/20/17 01:20 Lab Results: I have reviewed the past 24 hour labs Labs: Laboratory Results - last 24 hr 03/19/17 03/19/17 03/19/17 10:42 10:42 10:42 WBC 9.6 RBC 4.80 Hgb 12.6 Hct 39.7 MCV 82.7 L MCH 26 L MCHC 31.7 L RDW 18.6 H Plt Count 187 MPV 10.0 Neut % (Auto) 78.3 H Lymph % (Auto) 10.4 L [place] % (Auto) 9.9 Eos % (Auto) 0.6 Baso % (Auto) 0.3 Neut # (Auto) 7.5 H Lymph # (Auto) 1.0 L [place] # (Auto) 1.0 H Eos # (Auto) 0.1 Baso # (Auto) 0.0 Immature Gran % 0.5 Nucleated RBC % 0.0 Immature Gran # 0.05 Nucleated RBCs # 0.00 INR 1.1 PT Patient/Control Mix 11.4 D-Dimer, Quantitative 1.1 Circ Anticoag PTT 31.3 Sodium 139 Potassium 4.0 Chloride 104 Carbon Dioxide 29 Anion Gap 10.0 BUN 11 Creatinine 1.00 GFR Calculation 56 BUN/Creatinine Ratio 11.00 Glucose 99 Hemoglobin A1c Calculated Osmolality 275.5 Calcium 8.8 Magnesium Total Bilirubin 0.50 AST 20 ALT 15 Alkaline Phosphatase 91 Total Creatine Kinase 58 CK-MB (CK-2) 1.7 Troponin I 0.271 H B-Natriuretic Peptide Total Protein 6.7 Albumin 3.3 L Globulin 3.4 Albumin/Globulin Ratio 0.9 L Triglycerides Cholesterol LDL Cholesterol VLDL Cholesterol HDL Cholesterol Heart Disease Risk Ratio Free T4 TSH 3rd Generation 03/19/17 03/19/17 03/19/17 10:42 14:35 19:46 WBC RBC Hgb Hct MCV MCH MCHC RDW Plt Count MPV Neut % (Auto) Lymph % (Auto) [place] % (Auto) Eos % (Auto) Baso % (Auto) Neut # (Auto) Lymph # (Auto) [place] # (Auto) Eos # (Auto) Baso # (Auto) Immature Gran % Nucleated RBC % Immature Gran # Nucleated RBCs # INR PT Patient/Control Mix D-Dimer, Quantitative Circ Anticoag PTT Sodium Potassium Chloride Carbon Dioxide Anion Gap BUN Creatinine GFR Calculation BUN/Creatinine Ratio Glucose Hemoglobin A1c Calculated Osmolality Calcium Magnesium Total Bilirubin AST ALT Alkaline Phosphatase Total Creatine Kinase 51 66 D CK-MB (CK-2) 1.2 2.2 Troponin I 0.269 H 0.276 H B-Natriuretic Peptide 1026 H Total Protein Albumin Globulin Albumin/Globulin Ratio Triglycerides Cholesterol LDL Cholesterol VLDL Cholesterol HDL Cholesterol Heart Disease Risk Ratio Free T4 TSH 3rd Generation 03/20/17 03/20/17 03/20/17 01:20 01:20 01:20 WBC RBC Hgb Hct MCV MCH MCHC RDW Plt Count MPV Neut % (Auto) Lymph % (Auto) [place] % (Auto) Eos % (Auto) Baso % (Auto) Neut # (Auto) Lymph # (Auto) [place] # (Auto) Eos # (Auto) Baso # (Auto) Immature Gran % Nucleated RBC % Immature Gran # Nucleated RBCs # INR PT Patient/Control Mix D-Dimer, Quantitative Circ Anticoag PTT Sodium 140 Potassium 3.8 Chloride 100 Carbon Dioxide 29 Anion Gap 14.8 BUN 14 Creatinine 1.00 GFR Calculation 56 BUN/Creatinine Ratio 14.00 Glucose 96 Hemoglobin A1c Calculated Osmolality 279.4 Calcium 9.1 Magnesium 2.1 Total Bilirubin 0.60 AST 10 ALT 13 Alkaline Phosphatase 85 Total Creatine Kinase 69 CK-MB (CK-2) 1.7 Troponin I 0.266 H B-Natriuretic Peptide Total Protein 6.8 Albumin 3.4 Globulin 3.4 Albumin/Globulin Ratio 1.0 L Triglycerides 112 Cholesterol 196 LDL Cholesterol 114.0 VLDL Cholesterol 22.4 HDL Cholesterol 44 Heart Disease Risk Ratio 4.45 Free T4 1.20 TSH 3rd Generation 0.857 03/20/17 03/20/17 01:20 01:20 WBC RBC Hgb Hct MCV MCH MCHC RDW Plt Count MPV Neut % (Auto) Lymph % (Auto) [place] % (Auto) Eos % (Auto) Baso % (Auto) Neut # (Auto) Lymph # (Auto) [place] # (Auto) Eos # (Auto) Baso # (Auto) Immature Gran % Nucleated RBC % Immature Gran # Nucleated RBCs # INR PT Patient/Control Mix D-Dimer, Quantitative Circ Anticoag PTT Sodium 140 Potassium 3.8 Chloride 100 Carbon Dioxide 30 Anion Gap 13.8 BUN 14 Creatinine 1.00 GFR Calculation 56 BUN/Creatinine Ratio 14.00 Glucose 96 Hemoglobin A1c 6.2 Calculated Osmolality 279.4 Calcium 9.2 Magnesium Total Bilirubin AST ALT Alkaline Phosphatase Total Creatine Kinase CK-MB (CK-2) Troponin I B-Natriuretic Peptide Total Protein Albumin Globulin Albumin/Globulin Ratio Triglycerides Cholesterol LDL Cholesterol VLDL Cholesterol HDL Cholesterol Heart Disease Risk Ratio Free T4 TSH 3rd Generation - Diagnostic Findings Procedure: Chest x-ray: image reviewed by me, report reviewed by me - EKG EKG results: interpreted by me, no acute changes EKG shows: sinus rhythm Quality Measures - VTE Contraindication to Pharmacological VTE Prophylaxis: Already on Theraputic Agent , No Prophylaxis Needed Robin Santo Wesley, MD, personally performed the services described in this documentation, ascribed by Christy Chowdary RN in my presence, and it is both accurate and complete 510 .
--- NOTE | 2017-03-20 20:01 | Hospitalist Progress Note ---
Assessment and Plan (1) Afib Status: Chronic Assessment and plan: Rate controlled. On Eliquis Current Visit: No Qualifiers: Atrial fibrillation type: persistent Qualified Code(s): I48.1 - Persistent atrial fibrillation (2) GERD (gastroesophageal reflux disease) Status: Chronic Current Visit: No (3) Congestive heart failure Status: Acute Assessment and plan: Improving with Lasix diuresis. Echocardiogram reviewed. Ejection fraction 55% . Tricuspid regurgitation velocities suggest a PAP of 60 mmHg. Current Visit: Yes Qualifiers: Congestive heart failure type: diastolic Congestive heart failure chronicity: acute on chronic Qualified Code(s): I50.33 - Acute on chronic diastolic (congestive) heart failure (4) Elevated troponin Status: Acute Current Visit: Yes (5) Hx of coronary artery disease Status: Chronic Current Visit: Yes Hospitalist: Subjective Interval history: Patient was seen and examined. Cardiology notes reviewed. She reports significant improvement in her shortness of breath. Edema has improved. She has had a good response to Lasix. Renal function is stable. Plan for discharge home tomorrow. Exam - Constitutional Vitals: Period Temp Pulse Resp BP Sys/Bridges Pulse Ox Last 24 Hr 97.9 F-99.7 F 67-75 16-20 144-165/63-80 94-98 Exam: Constitutional System: No distress. No tremulousness. Head: Normocephalic, atraumatic. Ears, Nose and Throat System: No pain or tenderness. No epistaxis or discharge Eyes System: Pupils equal, round, and reactive. Extraocular muscles intact. Neck: Supple, without adenopathy, No jugular venous distention. No thyromegaly, neck mass, or prior surgery apparent. Respiratory System: Chest clear to auscultation. Cardiovascular System: Heart with regular rate and rhythm. No murmur. GI System: Abdomen soft, nontender. Normo active bowel sounds present. Musculoskeletal System: limbs with no pedal edema. Full distal pulses. Neurological System: No discernable sensory deficit. No aphasia Psychiatric System: Conversation is rational Results - Labs CBC & BMP: 03/19/17 10:42 03/20/17 01:20 Lab Results: I have reviewed the past 24 hour labs Quality Measures - VTE Contraindication to Pharmacological VTE Prophylaxis: Already on Theraputic Agent , No Prophylaxis Needed
[2017-03-20] MEDS ORDERED: LATANOPROST 0.005% OPH SOLN 2.5 ML BOTTLE BOTH EYES SCH (21:00)
[2017-03-21 05:14] LABS: Calcium 9.7 MG/DL (8.5-10.1); Osmolality,Calculated 276.5 MOS/KG (273-304); Potassium 3.9 MMOL/L (3.5-5.1)
[2017-03-21] MEDS: FUROSEMIDE 40 MG/4 ML VIAL IV SCH (09:00)
[2017-03-21] MEDS: APIXABAN 2.5 MG TABLET PO SCH (09:01)
[2017-03-21] MEDS: METOPROLOL SUCCINATE XL 25 MG TABLET PO SCH (09:01)
[2017-03-21] MEDS: CETIRIZINE 10 MG TABLET PO SCH (09:01)
[2017-03-21] MEDS: PANTOPRAZOLE 40 MG TABLET PO SCH (09:01)
[2017-03-21] MEDS: amLODIPine 10 MG TABLET PO SCH (09:01)
[2017-03-21] MEDS: ASPIRIN EC 81 MG TABLET PO SCH (09:01)
[2017-03-21] MEDS: LOSARTAN 25 MG TABLET PO SCH (09:01)
[2017-03-21] MEDS ORDERED: LOSARTAN 50 MG TABLET PO SCH (09:45)
--- NOTE | 2017-03-21 09:53 | Cardiology Progress Note ---
<Samara Kowalski - Last Filed: 03/21/17 09:35> Assessment and Plan (1) CHF exacerbation Status: Acute Assessment and plan: See plan of care listed below. Current Visit: Yes (2) Paroxysmal atrial fibrillation Status: Chronic Assessment and plan: See plan of care listed below. Current Visit: Yes (3) GERD (gastroesophageal reflux disease) Status: Chronic Assessment and plan: See plan of care listed below. Current Visit: Yes (4) History of coronary artery disease Status: Chronic Assessment and plan: See plan of care listed below. Current Visit: Yes (5) History of CVA (cerebrovascular accident) Status: Chronic Assessment and plan: See plan of care listed below. Current Visit: Yes (6) Chronic anticoagulation Status: Chronic Assessment and plan: See plan of care listed below. Current Visit: Yes (7) Hypertension Status: Chronic Assessment and plan: See plan of care listed below. Current Visit: Yes (8) PAD (peripheral artery disease) Status: Chronic Assessment and plan: See plan of care listed below. 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 KAM SUMMARY: Ms. Hobson is a 86 year old black female with risk factors significant for: age, hypertension, dyslipidemia, known history of CAD, and previous tobacco use. Past medical history include persistent atrial fibrillation, peripheral arterial disease with claudication, CVA 2, GERD, anxiety. Anticoagulated with low-dose Eliquis. She is status post non-ST elevation IL in September 2014 when cardiac cath revealed proximal RCA occlusion not amenable to PCI. At time of cath, LV ejection fraction was 50%. She was last evaluated by Dr. Kam at [facility] in January 2017, and at time of visit, she was having no anginal complaint or overt signs or symptoms of heart failure. Noted she has chronic ( mild) bilateral lower extremity edema, left greater than right. Patient has been maintained in a sinus rhythm status post cardioversion in 2014. Patient was admitted to [facility] telemetry unit for presenting to the emergency room complaining of fatigue, nausea vomiting, shortness of breath with onset just a few hours prior to arrival. Patient was concerned she was experiencing a heart attack because she woke up sweating. EKG negative for acute ischemic finding. Chest x-ray cardiomegaly and bibasilar atelectatic changes, suggestive of CHF. BNP 1026. Normal d-dimer. Cardiology was consulted to see patient for further management of CHF. March: Ms. Hobson is awake and alert this morning. No acute respiratory distress noted. Reports continued improvement in her breathing. She tells me that her breathing appears to be back to baseline. No chest pain or tightness, nausea, or vomiting. Reports fair amount urine output since initiation of diuresis. Weight is down 6 pounds according to I's and O's. Transition to p.o. Lasix today. Echocardiogram was reviewed and reveals preserved ejection fraction of 55%. Labs reviewed. Electrolytes within acceptable range. Troponin levels have remained flat and peaked at 0.276. Blood pressure remains elevated. Her medication regimen will be adjusted accordingly. Sinus rhythm per telemetry monitoring without disturbance. From a cardiology standpoint, patient is stable for discharge home. ASSESSMENT/PLAN: 1. CHF EXACERBATION, UNKNOWN ETIOLOGY - Per echocardiogram this admission ejection fraction estimated at 55%. Patient is diuresing well. Patient's breathing has significantly improved and she feels that she is back to baseline. Will transition patient to p.o. Lasix today. From a cardiology standpoint, she is stable for discharge home. She will be given a follow-up appoint with Dr. Kam in 1-2 weeks. 2. ATRIAL FIBRILLATION - History of paroxysmal atrial fibrillation. Patient has been maintained in a normal sinus rhythm since cardioversion in 2014. Continue low-dose Eliquis for stroke prevention. Monitor for bleeding. 3. HISTORY OF CVA - Clinically stable this admission. Continue Eliquis. 4. GERD - Continue current plan of care with PPI. 5. HYPERTENSION - Suboptimally controlled. Cozaar increased today. 6. PAD - Known 90% ostial right common iliac stenosis with probable disease below the knees. She does have some claudication, does not ambulate much, but does use a walker for assistance. Continue current plan of care. 7. HISTORY OF CAD - Previous NSTEMI. Per cardiac catheterization in September 2014, proximal RCA occlusion not amenable to PCI. Continue medical management. Exam (Progress Note) - Constitutional Vitals: Period Temp Pulse Resp BP Sys/Bridges Pulse Ox Last 24 Hr 97.5 F-98.8 F 60-79 16-20 159-178/69-90 94-98 Exam: General: Present: No Apparent Distress, Other (elderly) HEENT: Present: PERRL, Normocephaly, Mucus Membranes Moist. Absent: Pallor Neck: Present: Supple Neck, Midline Trachea, No JVD/HJR, No Masses, No Bruit Cardiac: Present: Reg Rate and Rhythm, No Murmur. Absent: Tachycardia, Bradycardia Lungs: Present: Clear to auscultation Neuro: Present: Grossly Intact. Absent: Numbness, Weakness, Resting Tremor, Essential Tremor Abdomen: Present: Soft, Active Bowel Sounds, No Masses, No Pulsations/Bruits. Absent: Ascites, Tender, Firm, Distended Skin: Present: Clear, warm, dry. Absent: Rash, Suspicious Lesions, diaphoresis , cyanosis Musculoskeletal: Present: Full ROM. Extremities: Present: No Clubbing, No Cyanosis, +1 Edema (left lower extremity ( chronic), Capillary Refill (normal) Result/EKG - Labs CBC & BMP: 03/19/17 10:42 03/21/17 03:58 Lab Results: I have reviewed the past 24 hour labs Labs: Laboratory Results - last 24 hr 03/21/17 03:58 Sodium 139 Potassium 3.9 Chloride 99 Carbon Dioxide 29 Anion Gap 14.9 BUN 13 Creatinine 0.90 GFR Calculation 63 BUN/Creatinine Ratio 14.00 Glucose 91 Calculated Osmolality 276.5 Calcium 9.7 Quality Measures - VTE Contraindication to Pharmacological VTE Prophylaxis: Already on Theraputic Agent , No Prophylaxis Needed Specialty Discharge - Follow Up or Referrals Follow up with: Misha Kam MD [Physician] - 04/04/17 2:10 pm (Arrive at 1:50 for lab work, appt with Dr. Kam at 2:10. Follow-up Dr. Kam in 2 weeks with BMP.) <Donato Kelly - Last Filed: 03/21/17 14:13> Assessment and Plan (1) Congestive heart failure Status: Acute Current Visit: Yes Qualifiers: Congestive heart failure type: diastolic Congestive heart failure chronicity: acute on chronic Qualified Code(s): I50.33 - Acute on chronic diastolic (congestive) heart failure (2) Afib Status: Chronic Current Visit: No Qualifiers: Atrial fibrillation type: persistent Qualified Code(s): I48.1 - Persistent atrial fibrillation (3) History of CVA (cerebrovascular accident) Status: Chronic Current Visit: Yes (4) GERD (gastroesophageal reflux disease) Status: Chronic Current Visit: No (5) HTN (hypertension) Status: Chronic Current Visit: No (6) PAD (peripheral artery disease) Status: Chronic Current Visit: Yes (7) Hx of coronary artery disease Status: Chronic Current Visit: Yes Cardiology - PN: Subj Interval history: Agree with plans for discharge today. I have discussed in detail the particulars of this case and I have examined the patient and reviewed the patient's chart both current and old. I was directly involved in the patient's evaluation and management and I completely agree with Samara Kowalski INFORMATION SYSTEMS SECURITY MANAGER regarding this patient's evaluation and treatment plan. Exam (Progress Note) - Constitutional Vitals: Period Temp Pulse Resp BP Sys/Bridges Pulse Ox Last 24 Hr 97.5 F-98.8 F 60-79 16-18 149-178/72-90 94-98 Result/EKG - Labs CBC & BMP: 03/19/17 10:42 03/21/17 03:58 Labs: Laboratory Results - last 24 hr 03/21/17 03:58 Sodium 139 Potassium 3.9 Chloride 99 Carbon Dioxide 29 Anion Gap 14.9 BUN 13 Creatinine 0.90 GFR Calculation 63 BUN/Creatinine Ratio 14.00 Glucose 91 Calculated Osmolality 276.5 Calcium 9.7
--- NOTE | 2017-03-21 11:58 | Discharge Summary ---
Hospital Course - Hospital Course Hospital Course: 86-year-old female admitted to the hospital with shortness of breath and lower extremity edema. She is admitted with acute exacerbation of congestive heart failure. Echocardiogram shows: IMPRESSIONS Normal left ventricular cavity size. Mild to moderate left ventricular hypertrophy. Left ventricular ejection fraction is estimated at 55 %. The right ventricle is normal in size and function. The right atrium is normal in size. The left atrium is normal in size. Morphologically normal mitral valve. Mild mitral valve regurgitation. Aortic valve sclerosis without stenosis. Moderate aortic valve regurgitation. Morphologically normal tricuspid valve. Mild tricuspid valve regurgitation. Tricuspid regurgitation velocities suggest a PAP of 60 mmHg. Morphologically normal pulmonic valve. Mild pulmonary valve regurgitation. Normal pericardium without effusion. Normal ascending aorta dimension. She was seen in consultation by cardiology. She was diuresed with IV Lasix. Her shortness of breath has resolved. Lower extremity edema has improved. She is back to baseline. She has reached maximal benefit from this inpatient hospitalization and is being discharged home to follow-up with her primary care physician. She is given a new perception for Lasix and potassium supplement. Home medications were reconciled and continued. Losartan was added. - Time spent with patient Time with patient DS: Greater than 30 minutes Diagnosis - Discharge Diagnosis (1) Afib Status: Chronic (2) GERD (gastroesophageal reflux disease) Status: Chronic (3) Congestive heart failure Status: Acute (4) Elevated troponin Status: Acute (5) Hx of coronary artery disease Status: Chronic Specialty Discharge - Follow Up or Referrals Follow up with: Misha Ureña MD [Physician] - 2 Weeks (Follow-up Dr. Ureña in 2 weeks with [facility].) Discharge Plan - Discharge Data Disposition: Disch To Home/Self Care Condition at Discharge: Stable Discharge Diet: advance to your usual diet Activity: resume usual activities as tolerated Hygiene: no restrictions Weight Bearing at Discharge: full weight bearing Driving: no restrictions Contact your physician if you experience:: Shortness of breath - Discharge Medications New Losartan [Cozaar] 50 mg PO BID #60 tablet Rosuvastatin [Crestor] 10 mg PO BEDTIME #30 tablet Furosemide Tab [Lasix Tab] 20 mg PO DAILY #30 tablet Potassium Chloride Cap/Tab [K Dur] 10 meq PO DAILY #30 tablet Continue amLODIPine [Norvasc] 10 mg PO DAILY Aspirin EC Tab 81 mg PO DAILY Apixaban [Eliquis] 1 tablet PO BID Pantoprazole Tab [Protonix Tab] 40 mg PO DAILY Metoprolol Succinate Xl [Toprol Xl] 25 mg PO DAILY Cetirizine HCl [Cetirizine Tab] 10 mg PO DAILY traMADol TAB [Ultram] 50 mg PO Q6H PRN PRN Reason: Pain Dicyclomine Cap/Tab [Bentyl Cap/Tab] 20 mg PO QID PRN #20 tablet PRN Reason: Abdominal Pain Ondansetron [Ondansetron Odt] 8 mg PO Q4H PRN #10 tab.rapdis PRN Reason: Nausea Latanoprost 0.005% Oph Soln [Xalatan 0.005% Oph Soln] 0.005 % BOTH EYES BEDTIME - Follow Up or Referral Follow Up: Misha Ureña MD [Physician] - 2 Weeks (Follow-up Dr. Ureña in 2 weeks with BMP.) - Forms/Instructions Exam - Constitutional Vitals: Period Temp Pulse Resp BP Sys/Bridges Pulse Ox Last 24 Hr 97.5 F-98.8 F 60-79 16-20 159-178/69-90 94-98 Discharge Results Procedures and tests throughout hospitalization: Pending Orders 03/22/17 04:00 BMP [Basic Metabolic Panel] IN AM BMP w/ Mg [Basic Metabolic Panel w/Mg] IN AM CBC [Comp Blood Count Auto Diff] IN AM Labs on day of discharge: Labs from last 24 hours 03/21/17 03:58 Sodium 139 Potassium 3.9 Chloride 99 Carbon Dioxide 29 Anion Gap 14.9 BUN 13 Creatinine 0.90 GFR Calculation 63 BUN/Creatinine Ratio 14.00 Glucose 91 Calculated Osmolality 276.5 Calcium 9.7 - Imaging and Cardiology Procedure: Chest x-ray: image reviewed by me, report reviewed by me DS: Provider Date of admission: 03/19/17 12:05 Primary care physician: Mitra Saunders Attending physician on admission: Jodie Espinoza MD Consults: 03/19/17 13:21 Consult to Physician [CONS] Routine Comment: Consulting Provider: Cardiology - [facility] Discharging clinician: Jodie Espinoza MD Expected date of discharge: 03/21/17
[2017-03-21 12:17] VITALS: BP 149/72
[2017-03-21] MEDS ORDERED: FUROSEMIDE 40 MG TABLET PO SCH (16:00)
[2017-03-21] MEDS ORDERED: ROSUVASTATIN 10 MG TABLET PO SCH (21:00)
== END 2017-03-21 14:26 | disposition home or self-care (01) | DRG 292 ==
LOC: N.ED 09:12 → N.EDINP 12:05 → N.TELES 14:07
PROVIDERS: ADMIT Family Medicine; ATTEND Family Medicine

== ENCOUNTER 2017-04-13 18:16 | Inpatient (IN) ==
--- NOTE | 2017-04-13 18:53 | EKG Report ---
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
[2017-04-13] MEDS ORDERED: ONDANSETRON 4 MG/2 ML VIAL IV STA (20:11)
[2017-04-13] MEDS ORDERED: FUROSEMIDE 100 MG/10 ML VIAL IV STA (20:11)
[2017-04-13] MEDS ORDERED: ONDANSETRON 4 MG/2 ML VIAL ONE (20:18)
[2017-04-13] MEDS ORDERED: FUROSEMIDE 20 MG/2 ML VIAL ONE (20:19)
[2017-04-13] MEDS ORDERED: MORPHINE 2 MG/1 ML SYRINGE ONE (20:58)
[2017-04-13 21:05] LABS: Basophils % 0.2 % (0.0-0.8); Eosinophils # 0.4 10*3/uL (0.0-0.87); Eosinophils % 3.9 % (0.00-10.9); Hematocrit 39.7 VOL% (35.7-47.0); Hemoglobin 12.5 GM/DL (12.0-16.0); Immature Granulocytes % 0.5 %; Immature Granulocytes Absolute 0.05 #; Lymphocytes % 8.7 % (21.3-54.2); Mean Corpuscular HGB Conc 31.5 GM/DL (32-36); Mean Corpuscular Hemoglobin 26 PG (27-34); Mean Platelet Volume 11.1 FL (9.6-12.0); Monocytes # 1.1 10*3/uL (0.11-0.8); Neutrophils # 8.4 10*3/uL (1.4-7.4); Neutrophils % 76.7 % (38.7-73.9); Platelet Count 163 T/CUMM (130-400); Red Blood Count 4.84 MC/CUMM (3.8-5.5); Red Cell Distribution Width 17.4 % (9.3-17.3)
[2017-04-13] MEDS ORDERED: MORPHINE 2 MG/1 ML SYRINGE IV STA (21:10)
--- NOTE | 2017-04-13 21:14 | XRay Report ---
History: Shortness of breath Date: 04/13/2017 Study: Chest x-ray AP portable Comparison exam: March 19, 2017 There is cardiomegaly. The pulmonary vasculature is mildly engorged. The mediastinal contours are similar to the previous study. Neurostimulator leads overlie the mid to lower thoracic spine. There is hazy pulmonary edema in the mid to lower lungs. There is mild left-sided pleural effusion. Osseous structures are unchanged. Impression: Cardiomegaly and evidence of CHF with some mild pulmonary edema and mild left pleural effusion PROCEDURE INTERPRETED AT [facility] DEPARTMENT OF RADIOLOGY Final Report Signed by: Dr. Dalila Lea
[2017-04-13 21:23] LABS: D-Dimer 1.1 MG/L FEU; INR 1.1; PT Patient Result 11.6 SECS; Partial Thromboplastin Time 33.1 SECS (0-40)
[2017-04-13 21:25] LABS: Albumin 3.1 G/DL (3.4-5.0); Bilirubin,Total 0.5 MG/DL (0.2-1.0); Calcium 8.8 MG/DL (8.5-10.1); Magnesium 2.5 MG/DL (1.8-2.4); Osmolality,Calculated 284.3 MOS/KG (273-304); Potassium 4.7 MMOL/L (3.5-5.1); Total Protein 6.4 G/DL (6.4-8.3); Troponin I Only 0.318 NG/ML (0.00-0.045)
--- NOTE | 2017-04-13 22:43 | Emergency Department Note ---
Arrival - Arrival Chief Complaint: Shortness of Breath Stated Complaint: SOB ED Nursing Triage Note: sob that started this morning pt reports she has had a productive cough with clear secretions. pt denies pain. Mode of Arrival: Wheelchair Limitations: No Limitations Source: Patient Time Seen by Provider: 04/13/17 20:03 - History of Present Illness HPI Narrative: The patient complains of shortness of breath which started this morning. She has had a cough productive of clear sputum since last night and some clear rhinorrhea. She denies any fever or chills. She denies any chest discomfort, nausea or vomiting. She has had similar symptoms in the past due to congestive heart failure. She also has a history of COPD. Allergies/Adverse Reactions: Allergies Allergy/AdvReac Type Severity Reaction Status Date / Time No Known Allergies Allergy Verified 10/27/16 09:16 Home Medications: Home Medications Medication Instructions Recorded Confirmed Type Apixaban [Eliquis] 1 tablet PO BID 09/23/15 03/19/17 History Aspirin EC Tab 81 mg PO DAILY 09/23/15 03/19/17 History amLODIPine [Norvasc] 10 mg PO DAILY 09/23/15 03/19/17 History Pantoprazole Tab [Protonix Tab] 40 mg PO DAILY 05/03/16 03/19/17 History Cetirizine HCl [Cetirizine Tab] 10 mg PO DAILY 03/13/17 03/19/17 History Dicyclomine Cap/Tab [Bentyl 20 mg PO QID PRN #20 tablet 03/13/17 03/19/17 Rx Cap/Tab] Metoprolol Succinate Xl [Toprol Xl] 25 mg PO DAILY 03/13/17 03/19/17 History Ondansetron [Ondansetron Odt] 8 mg PO Q4H PRN #10 tab.rapdis 03/13/17 03/19/17 Rx traMADol TAB [Ultram] 50 mg PO Q6H PRN 03/13/17 03/19/17 History Latanoprost 0.005% Oph Soln 0.005 % BOTH EYES BEDTIME 03/20/17 03/20/17 History [Xalatan 0.005% Oph Soln] Furosemide Tab [Lasix Tab] 20 mg PO DAILY #30 tablet 03/21/17 Rx Losartan [Cozaar] 50 mg PO BID #60 tablet 03/21/17 Rx Potassium Chloride Cap/Tab [K Dur] 10 meq PO DAILY #30 tablet 03/21/17 Rx Rosuvastatin [Crestor] 10 mg PO BEDTIME #30 tablet 03/21/17 Rx Nitrofurantoin Macro/[place] 100 mg PO BID #14 capsule 04/06/17 Rx [Macrobid] Ondansetron Odt Tab [Zofran Odt] 4 mg PO Q6H #10 tablet 04/06/17 Rx Review of System - Review of System 12 point system: reviewed and no additional remarkable complaints except as stated - Review of System Head/Ears/Nose/Throat: Present: nasal drainage. Absent: sore throat Respiratory: Present: cough, respiratory distress. Absent: wheezing Cardiovascular: Present: dyspnea on exertion, orthopnea, edema. Absent: chest pain Gastrointestinal: Absent: nausea, vomiting Medical,Surgical,& Family Hx - Medical History Cardio: History of: Cardiac Dysrhythmia (atrial fibrillation, paroxysmal), CHF, CAD, Hypertension, [place] No history of: Valvular Heart Disease Psychological: History of: Anxiety Disorders, Psychiatric Problems (Nervous breakdown x2.) Neurology: History of: Cerebrovascular Accident, TIA No history of: Dementia, Seizures HEENT: History of: HEENT Problems (Past nosebleeds (severe)) Endocrine: History of: Dyslipidemia No history of: Diabetes Mellitus (IDDM), Diabetes Mellitus (NIDDM), Thyroid Disorder Respiratory: History of: COPD No history of: Obstructive Sleep Apnea Gastrointestinal: History of: GERD Musculoskeletal: History of: Back/Neck Problems Other: No history of: Cancer - Surgical History Cardiac Surgeries: Sugical HX of: Cardiac Catheterization Patient Denies: Cardiac Surgery, Internal Defibrillator - Family History Family History: Reports;: Family Hypertension - Social History Smoking Status: Never smoker Exam Physical Examination: GENERAL: Alert. No acute distress. HEENT: Normocephalic and atraumatic. There is no nasal drainage. No pharyngeal erythema or exudate. NECK: Normal inspection. Supple. No lymphadenopathy or meningismus. LUNGS: No respiratory distress. Rales bilaterally. Mild tachypnea. HEART: Irregularly irregular rhythm at 100. ABDOMEN: Soft, nontender and nondistended with normoactive bowel sounds. BACK: Normal inspection. SKIN: Color normal. Warm and dry. EXTREMITIES: Nontender. Normal range of motion. No pedal edema. NEUROLOGICAL/PSYCHIATRIC: Alert and oriented -3 with normal mood and affect. Cranial nerves normal. No motor or sensory deficit. Vital Signs: Vital Signs Temperature 98.6 F 04/13/17 18:24 Pulse Rate 101 H 04/13/17 18:24 Respiratory Rate 26 H 04/13/17 18:24 Blood Pressure 158/76 04/13/17 18:24 O2 Sat by Pulse Oximetry 91 L 04/13/17 18:24 Course Course Narrative: Note: The multiple negatives in the past medical history were not marked by me. They are the result of the triage process, past medical records or other unknown causes. Due to time constraints, these were not all reviewed with the patient and the backslashes were not removed from the chart. They should be ignored. - Reevaluation(s) Reevaluation #1: The patient has remained stable in the ER and feels somewhat better after Lasix. Heart rate remains around 100. Hospitalist service notified that patient is to be admitted. Time: 22:41 Results - Labs CBC & BMP: 04/13/17 20:28 04/13/17 20:28 Lab Results: I have reviewed the patients labs Labs: Laboratory Tests 04/13/17 04/13/17 04/13/17 20:28 20:28 20:28 INR 1.1 D-Dimer, Quantitative 1.1 Lactic Acid Magnesium 2.5 H Total Bilirubin 0.50 AST 18 ALT 14 Troponin I 0.318 H B-Natriuretic Peptide 526 H 04/13/17 20:28 INR D-Dimer, Quantitative Lactic Acid 1.6 Magnesium Total Bilirubin AST ALT Troponin I B-Natriuretic Peptide - Impressions Chest x-ray shows:Cardiomegaly and evidence of CHF with some mild pulmonary edema and mild left pleural effusion EKG shows atrial fibrillation at 112 with a left axis deviation. Disposition Clinical Impression: Dyspnea, CHF exacerbation, Paroxysmal atrial fibrillation Case discussed with: patient, patient's family Disposition: Still a Patient Condition: Stable Time of Disposition: 22:41
--- NOTE | 2017-04-14 00:10 | Hospitalist History & Physical ---
Assessment and Plan (1) Congestive heart failure Status: Acute Assessment and plan: Patient seemed to have acute exacerbation of CHF I am not sure if this is due to poor compliance with diet medication or atrial fibrillation with the tachycardia. I will give IV diuretics continue beta-lilia and try to do rate control. I do not suspect any acute coronary syndrome but will repeat troponin and EKG with morning labs. Patient has denied any chest pain Current Visit: No Qualifiers: Congestive heart failure type: diastolic Congestive heart failure chronicity: acute on chronic Qualified Code(s): I50.33 - Acute on chronic diastolic (congestive) heart failure (2) Atrial fibrillation Status: Chronic Assessment and plan: Continue with the beta-lilia may need dose adjustment this need to be followed up based on her heart rate after diuretics and the home dose of beta- lilia. Continue Eliquis as anticoagulant Current Visit: Yes (3) Hypertension Status: Acute Assessment and plan: I will continue with the losartan and amlodipine she is taking home in addition to beta-lilia Current Visit: Yes (4) Elevated troponin Status: Chronic Assessment and plan: Patient has chronic elevated troponin but I will repeat in the morning lab for stability. Elevated troponin could be due to CHF and atrial fib with tachycardia Current Visit: No History of Present Illness Chief complaint: Shortness of breath History of present illness: Ms. Hobson is a 86 year old female with history of atrial fibrillation CHF hypertension coronary artery disease. She was recently admitted for the CHF exacerbation. She came today with history of shortness of breath and feeling more tired started yesterday. She also reports some foot swelling no chest pain she has some nausea with no vomiting or diarrhea she has some cough with clear sputum and subjective fever but temperature was 98.6 in ER. She denies any urinary symptom and is reported voiding well. In the ER she received 20 mg IV Lasix and morphine. Her troponin was 0.318 BNP 526 she had a troponin of 0.26 on 03/20/2017 . I was asked to admit the patient. Home Medications Medication Instructions Recorded Confirmed Type Apixaban [Eliquis] 1 tablet PO BID 09/23/15 03/19/17 History Aspirin EC Tab 81 mg PO DAILY 09/23/15 03/19/17 History amLODIPine [Norvasc] 10 mg PO DAILY 09/23/15 03/19/17 History Pantoprazole Tab [Protonix Tab] 40 mg PO DAILY 05/03/16 03/19/17 History Cetirizine HCl [Cetirizine Tab] 10 mg PO DAILY 03/13/17 03/19/17 History Dicyclomine Cap/Tab [Bentyl 20 mg PO QID PRN #20 tablet 03/13/17 03/19/17 Rx Cap/Tab] Metoprolol Succinate Xl [Toprol Xl] 25 mg PO DAILY 03/13/17 03/19/17 History Ondansetron [Ondansetron Odt] 8 mg PO Q4H PRN #10 tab.rapdis 03/13/17 03/19/17 Rx traMADol TAB [Ultram] 50 mg PO Q6H PRN 03/13/17 03/19/17 History Latanoprost 0.005% Oph Soln 0.005 % BOTH EYES BEDTIME 03/20/17 03/20/17 History [Xalatan 0.005% Oph Soln] Furosemide Tab [Lasix Tab] 20 mg PO DAILY #30 tablet 03/21/17 Rx Losartan [Cozaar] 50 mg PO BID #60 tablet 03/21/17 Rx Potassium Chloride Cap/Tab [K Dur] 10 meq PO DAILY #30 tablet 03/21/17 Rx Rosuvastatin [Crestor] 10 mg PO BEDTIME #30 tablet 03/21/17 Rx Nitrofurantoin Macro/[place] 100 mg PO BID #14 capsule 04/06/17 Rx [Macrobid] Ondansetron Odt Tab [Zofran Odt] 4 mg PO Q6H #10 tablet 04/06/17 Rx Allergies Allergy/AdvReac Type Severity Reaction Status Date / Time No Known Allergies Allergy Verified 10/27/16 09:16 Medical,Surgical,& Family Hx - Medical History Cardio: History of: Cardiac Dysrhythmia (atrial fibrillation, paroxysmal), CHF, CAD, Hypertension, [place] No history of: Valvular Heart Disease Psychological: History of: Anxiety Disorders, Psychiatric Problems (Nervous breakdown x2.) Neurology: History of: Cerebrovascular Accident, TIA No history of: Dementia, Seizures HEENT: History of: HEENT Problems (Past nosebleeds (severe)) Endocrine: History of: Dyslipidemia No history of: Diabetes Mellitus (IDDM), Diabetes Mellitus (NIDDM), Thyroid Disorder Respiratory: History of: COPD No history of: Obstructive Sleep Apnea Gastrointestinal: History of: GERD Musculoskeletal: History of: Back/Neck Problems Other: No history of: Cancer - Surgical History Cardiac Surgeries: Sugical HX of: Cardiac Catheterization Patient Denies: Cardiac Surgery, Internal Defibrillator - Family History Family History: Reports;: Family Hypertension - Social History Smoking Status: Former smoker (Quit in 1978 but still chew tobacco) Have you smoked in the last 12 months: No Frequency of Alcohol Use: None 12 point system: reviewed and no additional remarkable complaints except as stated (Mentioned in HPI) Exam - Constitutional Vitals: Period Temp Pulse Resp BP Sys/Bridges Pulse Ox Last 24 Hr 98.6 F 101 26 158/76 91 General appearance: normal weight, no acute distress - Head Head exam: Present: normal inspection, normocephalic, atraumatic - Eye Eye exam: Present: EOMI. Absent: conjunctival injection Pupils: Present: SARI, normal accommodation - ENT ENT exam: Present: normal exam, normal oropharynx - Respiratory Respiratory exam: Present: rales (Bilateral crepitus at the bases on auscultation), other (Equal air entry bilaterally). Absent: accessory muscle use, rhonchi - Cardiovascular Cardiovascular exam: Present: irregular rhythm, JVD (Elevated JVP), tachycardia - GI/Abdominal GI/Abdominal exam: Present: normal bowel sounds, soft. Absent: distended, tenderness - Extremities Exam Extremities exam: Present: edema (Trace if any edema in legs and feet) - Neurological Exam Neurological exam: Present: alert, oriented X3 Results - Labs CBC & BMP: 04/13/17 20:28 04/13/17 20:28 Lab Results: I have reviewed the past 24 hour labs Quality Measures - VTE Contraindication to Pharmacological VTE Prophylaxis: Already on Theraputic Agent , No Prophylaxis Needed
[2017-04-14] MEDS ORDERED: ONDANSETRON 4 MG/2 ML VIAL IV PRN (08:43)
--- NOTE | 2017-04-14 08:52 | EKG Report ---
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
[2017-04-14] MEDS: FUROSEMIDE 40 MG/4 ML VIAL IV SCH ×2 (09:35→15:44)
[2017-04-14] MEDS: PANTOPRAZOLE 40 MG TABLET PO SCH (09:36)
[2017-04-14] MEDS: ASPIRIN EC 81 MG TABLET PO SCH (09:36)
[2017-04-14] MEDS: APIXABAN 2.5 MG TABLET PO SCH ×2 (09:36→20:48)
[2017-04-14] MEDS: METOPROLOL SUCCINATE XL 25 MG TABLET PO SCH (09:36)
[2017-04-14] MEDS: LOSARTAN 50 MG TABLET PO SCH ×2 (09:37→20:49)
[2017-04-14] MEDS: amLODIPine 10 MG TABLET PO SCH (09:37)
[2017-04-14] MEDS: ROSUVASTATIN 10 MG TABLET PO SCH (20:49)
[2017-04-14] MEDS: ACETAMINOPHEN 325 MG TABLET PO PRN (20:54)
[2017-04-15] MEDS: ACETAMINOPHEN 325 MG TABLET PO PRN (09:30)
[2017-04-15] MEDS: FUROSEMIDE 40 MG/4 ML VIAL IV SCH ×2 (10:57→16:17)
[2017-04-15] MEDS: PANTOPRAZOLE 40 MG TABLET PO SCH (10:57)
[2017-04-15] MEDS: ASPIRIN EC 81 MG TABLET PO SCH (10:57)
[2017-04-15] MEDS: LOSARTAN 50 MG TABLET PO SCH ×2 (10:57→21:03)
[2017-04-15] MEDS: METOPROLOL SUCCINATE XL 25 MG TABLET PO SCH (10:57)
[2017-04-15] MEDS: APIXABAN 2.5 MG TABLET PO SCH ×2 (10:57→21:03)
[2017-04-15] MEDS: amLODIPine 10 MG TABLET PO SCH (10:57)
[2017-04-15] MEDS ORDERED: ALBUTEROL/IPRATROPIUM 3 ML NEB RESP TX ONE (11:21)
--- NOTE | 2017-04-15 11:22 | Hospitalist Progress Note ---
Assessment and Plan (1) Congestive heart failure Status: Acute Assessment and plan: slowly improving Plan Echo continue with IV Lasix, ACEI and bblocker, oxygen will add nebs treatment Current Visit: No Qualifiers: Congestive heart failure type: diastolic Congestive heart failure chronicity: acute on chronic Qualified Code(s): I50.33 - Acute on chronic diastolic (congestive) heart failure (2) Atrial fibrillation Status: Chronic Assessment and plan: rate is controlled. Continue with Eliquis Current Visit: Yes (3) HTN (hypertension) Status: Chronic Assessment and plan: stable Current Visit: No (4) GERD (gastroesophageal reflux disease) Status: Chronic Assessment and plan: on PPIs Current Visit: No (5) Elevated troponin Status: Acute Assessment and plan: will get another set Consult cardiology Current Visit: Yes (6) Dyslipidemia Status: Acute Assessment and plan: continue with statins Current Visit: Yes Hospitalist: Subjective Interval history: Patient seen this am, she states she doesnt feel good generally.She feels weak but breathes better. Exam - Constitutional Vitals: Period Temp Pulse Resp BP Sys/Bridges Pulse Ox Last 24 Hr 96.9 F-98.2 F 64-103 16-20 124-141/65-81 95-99 General appearance: no acute distress, other (on 2L NC o2) - Head Head exam: Present: normal inspection - Respiratory Respiratory exam: Present: clear to auscultation bilaterally - Cardiovascular Cardiovascular exam: Present: regular rate and rhythm - GI/Abdominal GI/Abdominal exam: Present: normal bowel sounds - Extremities Exam Extremities exam: Present: normal inspection - Neurological Exam Neurological exam: Present: alert Results - Labs CBC & BMP: 04/13/17 20:28 04/13/17 20:28 Lab Results: I have reviewed the past 24 hour labs Quality Measures - VTE Contraindication to Pharmacological VTE Prophylaxis: Already on Theraputic Agent , No Prophylaxis Needed
[2017-04-15 13:18] LABS: Troponin I Only 0.274 NG/ML (0.00-0.045)
[2017-04-15 13:24] LABS: Free T4 (Free Thyroxine) 1.36 NG/DL (0.76-1.46); Thyroid Stimulating Hormone 1.63 uIU/ml (0.358-3.74)
--- NOTE | 2017-04-15 18:13 | Cardiology Consult Note ---
Assessment and Plan (1) Afib Status: Chronic Current Visit: No Qualifiers: Atrial fibrillation type: paroxysmal Qualified Code(s): I48.0 - Paroxysmal atrial fibrillation (2) HTN (hypertension) Status: Chronic Current Visit: No (3) Congestive heart failure Status: Acute Current Visit: No Qualifiers: Congestive heart failure type: diastolic Congestive heart failure chronicity: acute Qualified Code(s): I50.31 - Acute diastolic (congestive) heart failure (4) Elevated troponin Status: Chronic Current Visit: No (5) Hx of coronary artery disease Status: Chronic Current Visit: No (6) Chronic anticoagulation Status: Chronic Current Visit: No (7) Hypertension Status: Chronic Current Visit: No (8) Dyspnea Status: Acute Current Visit: Yes (9) Dyslipidemia Status: Chronic Current Visit: Yes History of Present Illness - Data of Consult Patient: known to practice within the last 3 years Consult date: 04/15/17 Requesting Physician: Danial García - Consult Narrative Reason for consult: afib History of present illness: PRIMARY SALES RECEPTIONIST: DR. KAM Ms. Hobson is a 86 year old black female with risk factors significant for: age, hypertension, dyslipidemia, known history of CAD, and previous tobacco use. Past medical history include persistent atrial fibrillation, peripheral arterial disease with claudication, CVA 2, GERD, anxiety. Anticoagulated with low-dose Eliquis. She is status post non-ST elevation CO in September 2014 when cardiac cath revealed proximal RCA occlusion not amenable to PCI. At time of cath, LV ejection fraction was 50%. She was last evaluated by Dr. Kam at [facility] clinic in January 2017, and at time of visit, she was having no anginal complaint or overt signs or symptoms of heart failure. Noted she has chronic ( mild) bilateral lower extremity edema, left greater than right. Patient has been maintained in a sinus rhythm status post cardioversion in 2014, and at time of visit amlodipine dosage was decreased and beta-lilia increase to promote normal sinus rhythm. She was admitted to the hospital in March, and was diuresed. Her systolic function was normal upon echo at that time, although she was found a pulmonary hypertension, around 60 mmHg. She was discharged home, but now she represents feeling poorly. She has felt short of breath for several days, had a cough productive of clear sputum, and experienced some nausea without vomiting. She has had subjective fevers. Upon admission to the hospital she was found to be in atrial fibrillation. She was aware that her heart was racing. She has not been experiencing any chest discomfort per se. I have reviewed her echo today, her systolic function remains preserved and pulmonary pressures are decreased now. She has chronic swelling in her left lower extremity which is unchanged. This is related to a stroke. She ambulates with a walker. She has some occasional arthralgias. Impression and plan: 1. Shortness of breath-this may be multifactorial, but upon exam she appears to be in heart failure. She also has the atrial fibrillation, which is likely causing her heart failure. She may have a pulmonary process as well given her clinical history. 2. Atrial fibrillation-this has been paroxysmal, and she has not had recurrent since 2014 per the record. This is likely contributing to her symptoms of shortness of breath and heart failure. We will try adding amiodarone since she has been anticoagulated to see if we can convert her to normal rhythm. 3. Congestive heart failure-this is acute secondary to arrhythmia (atrial fibrillation). We will begin with diuresing her. CC: Erin Pena MD - Home Medications and Allergies Home Medications: Home Medications Medication Instructions Recorded Confirmed Type Apixaban [Eliquis] 1 tablet PO BID 09/23/15 04/14/17 History amLODIPine [Norvasc] 10 mg PO DAILY 09/23/15 04/14/17 History Pantoprazole Tab [Protonix Tab] 40 mg PO DAILY 05/03/16 04/14/17 History Cetirizine HCl [Cetirizine Tab] 10 mg PO DAILY 03/13/17 04/14/17 History Furosemide Tab [Lasix Tab] 20 mg PO DAILY #30 tablet 03/21/17 04/14/17 Rx Losartan [Cozaar] 50 mg PO BID #60 tablet 03/21/17 04/14/17 Rx Nitrofurantoin Macro/Delta 100 mg PO BID #14 capsule 04/06/17 04/14/17 Rx [Macrobid] Carvedilol 3.125 mg PO BID 04/14/17 04/14/17 History Potassium Chloride Cap/Tab [K Dur] 10 meq PO QOTHER DAY 04/14/17 04/14/17 History Allergies/Adverse Reactions: Allergies Allergy/AdvReac Type Severity Reaction Status Date / Time No Known Allergies Allergy Verified 10/27/16 09:16 12 point system: reviewed and no additional remarkable complaints except as stated Medical,Surgical,& Family Hx - Medical History Cardio: History of: Cardiac Dysrhythmia (atrial fibrillation, paroxysmal), CHF, CAD, Hypertension, CO No history of: Valvular Heart Disease Psychological: History of: Anxiety Disorders, Psychiatric Problems (Nervous breakdown x2.) Neurology: History of: Cerebrovascular Accident, TIA No history of: Dementia, Seizures HEENT: History of: HEENT Problems (Past nosebleeds (severe)) Endocrine: History of: Dyslipidemia No history of: Diabetes Mellitus (IDDM), Diabetes Mellitus (NIDDM), Thyroid Disorder Respiratory: History of: COPD No history of: Obstructive Sleep Apnea Gastrointestinal: History of: GERD Musculoskeletal: History of: Back/Neck Problems Other: No history of: Cancer - Surgical History Cardiac Surgeries: Sugical HX of: Cardiac Catheterization Patient Denies: Cardiac Surgery, Internal Defibrillator - Family History Family History: Reports;: Family Hypertension - Social History Smoking Status: Former smoker Frequency of Alcohol Use: None Marital Status: Lives With:: Sibling Functional capacity: uses cane/walker Physical Examination Vital Signs Temp Pulse Resp BP Pulse Ox 98.6 F 101 H 26 H 158/76 91 L 04/13/17 18:24 04/13/17 18:24 04/13/17 18:24 04/13/17 18:24 04/13/17 18:24 Exam: General appearance: normal weight, no acute distress - Head Head exam: Present: normal inspection, normocephalic, atraumatic. Absent: hematoma, laceration - Eye Eye exam: Present: EOMI. Absent: conjunctival injection, nystagmus, periorbital swelling, scleral icterus, laceration to eyelids Pupils: Present: PERRL. Absent: constricted, dilated, fixed, irregular, unequal - ENT ENT exam: Present: normal exam, normal external ear exam - Neck Neck exam: Present: normal inspection. Absent: lymphadenopathy, meningismus, tenderness, thyromegaly - Respiratory Respiratory exam: Present: Crackles in the bilateral bases. Absent: accessory muscle use, chest wall tenderness - Cardiovascular Cardiovascular exam: Present: Irregularly irregular rate and rhythm. Absent: carotid bruit, gallop, JVD, rubs - GI/Abdominal GI/Abdominal exam: Present: normal bowel sounds, soft. Absent: distended, firm , guarding, hernia, mass, tenderness, rebound. - Extremities Exam Extremities exam: Present: 1+ edema left lower extremity, normal capillary refill. Absent: calf tenderness - Back Exam Back exam: Present: normal inspection. Absent: muscle spasm, vertebral tenderness - Neurological Exam Neurological exam: Present: alert, oriented X3, grossly intact without resting or intention tremor - Psychiatric Psychiatric exam: Present: normal affect, normal mood - Skin Skin exam: Present: normal color, warm, dry, intact. Absent: cyanosis, diaphoretic, rash, urticaria Result/EKG - Labs CBC & BMP: 04/13/17 20:28 04/13/17 20:28 Lab Results: I have reviewed the past 24 hour labs Labs: Laboratory Results - last 24 hr 04/15/17 04/15/17 12:00 12:00 Total Creatine Kinase 44 CK-MB (CK-2) 1.1 Troponin I 0.274 H Free T4 1.36 TSH 3rd Generation 1.630 - Diagnostic Findings Procedure: Chest x-ray: report reviewed by me - EKG EKG results: interpreted by me EKG shows: atrial fibrillation Quality Measures - VTE Contraindication to Pharmacological VTE Prophylaxis: Already on Theraputic Agent , No Prophylaxis Needed
--- NOTE | 2017-04-15 18:19 | ECHO Report ---
Elizabeth Hobson Exam Date: 04/15/2017 13:12 Referring Physician: Technologist: Judi Gambino Age: 86 Ht (in): 63 Wt (lb): 144 Gender: F Exam Location: [facility] Echo Indications: SOB, A fib, CHF, dyslipidemia, elevatted troponin, HTN BP: 138 / 65 HR: 79 Rhythm: Sinus Technical Quality: Fair IMPRESSIONS Normal LV systolic function with regional wall motion as described below, ejection fraction 55%. Indeterminant diastolic parameters due to underlying arrhythmia. Mild biatrial enlargement. Mild mitral, aortic and pulmonic regurgitation. Moderate tricuspid regurgitation. Pulmonary artery pressure on this study is 35 mmHg plus right atrial pressure, decreased from previous study. MEASUREMENTS (Male / Female) Normal Values 2D ECHO LV Diastolic Diameter PLAX 3.7 cm 4.2 - 5.9 / 3.9 - 5.3 cm LV Systolic Diameter PLAX 2.0 cm LV Fractional Shortening PLAX 45.8 % IVS Diastolic Thickness 1.1 cm 0.6 - 1.0 / 0.6 - 0.9 cm LVPW Diastolic Thickness 1.2 cm 0.6 - 1.0 / 0.6 - 0.9 cm Aortic Root Diameter 3.0 cm LA Systolic Diameter LX 3.4 cm 3.0 - 4.0 / 2.7 - 3.8 cm DOPPLER TR Peak Velocity 296.0 cm/s TR Peak Gradient 35.0 mmHg FINDINGS Left Ventricle Normal left ventricular cavity size. Left ventricular ejection fraction is estimated at 55 %. The basal inferior wall appears hypokinetic, the remainder of the myocardium has normal movement. Right Ventricle Normal right ventricular size. Right Atrium The right atrium is mildly enlarged. Left Atrium The left atrium is mildly enlarged. Mitral Valve Morphologically normal mitral valve. Mild mitral valve regurgitation. Aortic Valve Mild aortic sclerois without stenosis. Mild aortic valve regurgitation. Tricuspid Valve Morphologically normal tricuspid valve, moderate tricuspid valve regurgitation. Tricuspid regurgitation velocities suggest a PAP of 35.0 mmHg + RAp. Pulmonic Valve Morphologically normal pulmonic valve. Trace pulmonary valve regurgitation. Pericardium No pericardial effusion. Aorta Normal size aortic root and proximal ascending aorta. Yadira Reilly MD (Electronically Signed) Final Date: 15 April 2017 18:17
[2017-04-15] MEDS ORDERED: AMIODARONE INJ 450 MG in DEXTROSE 5% 241 ML IV SCH (19:00)
[2017-04-15] MEDS: ROSUVASTATIN 10 MG TABLET PO SCH (21:03)
[2017-04-16] MEDS: AMIODARONE INJ 450 MG in DEXTROSE 5% 241 ML IV SCH ×2 (03:24→21:07)
--- NOTE | 2017-04-16 07:34 | EKG Report ---
Stationary ECG Study [facility] Test Date: 04/16/2017 7:32:50 AM Pat Name: PJ LAW Department: Room: 285 Gender: F Thread Marker: NATHALIE : 1930 Requested by: Yadira Reilly Order Number: [id number] Reading MD: TANISHA CABAN Intervals [place] Rate: 62 P: 999 ME: 0 QRS: -7 QRSD: 113 T: 43 QT: 439 QTc: 444 Interpretive Statements Atrial fibrillation INCOMPLETE RIGHT BUNDLE BRANCH BLOCK SEPTAL MYOCARDIAL INFARCTION, PROBABLY OLD Electronically Signed On 04-16-17 07:56:06 CDT by TANISHA CABAN [email or web address]
--- NOTE | 2017-04-16 08:09 | XRay Report ---
Single view the chest. Indication: Shortness of breath. Comparison: April 13, 2017. The heart is enlarged. There is calcific plaque present within the aortic knob. Surgical clips are noted in the right neck. Great vessel atherosclerotic disease is also seen. There is atelectasis present at the right lung base. There is moderate atelectasis and pleural effusion at the left lung base. The interstitial markings have improved. A neurostimulator projects over the midline. The osseous structures are diffusely demineralized with degenerative changes present. Impression: 1. Mild cardiomegaly. 2. Stable right basilar atelectasis. 3. Stable left basilar atelectasis and pleural effusion. 4. Clearing of the diffuse interstitial prominence. PROCEDURE INTERPRETED AT [facility] DEPARTMENT OF RADIOLOGY Final Report Signed by: Dr. Samara Rowan
[2017-04-16] MEDS: amLODIPine 10 MG TABLET PO SCH (09:03)
[2017-04-16] MEDS: METOPROLOL SUCCINATE XL 25 MG TABLET PO SCH ×2 (09:03→21:14)
[2017-04-16] MEDS: APIXABAN 2.5 MG TABLET PO SCH ×2 (09:04→21:07)
[2017-04-16] MEDS: ASPIRIN EC 81 MG TABLET PO SCH (09:04)
[2017-04-16] MEDS: PANTOPRAZOLE 40 MG TABLET PO SCH (09:04)
[2017-04-16] MEDS: LOSARTAN 50 MG TABLET PO SCH ×2 (09:04→21:06)
[2017-04-16] MEDS: FUROSEMIDE 40 MG/4 ML VIAL IV SCH ×2 (09:04→17:08)
--- NOTE | 2017-04-16 11:54 | Hospitalist Progress Note ---
Assessment and Plan (1) Atrial fibrillation Status: Chronic Assessment and plan: 1)afib with RVR- rate controlled on amio infusion, remains in afib. chronically anticoagulated for paroxysmal afib. Her shortness of breath is better today. 2)CHF- diastolic acute due to afib- diuresed, feeling better. 3)HTN Current Visit: Yes (2) CHF exacerbation Status: Acute Current Visit: Yes (3) HTN (hypertension) Status: Chronic Current Visit: No Hospitalist: Subjective Interval history: Mrs Hobson is feeling good this morning. Denies shortness of breath or chest pain. Heart rate now in the 80s, in afib. Exam - Constitutional Vitals: Period Temp Pulse Resp BP Sys/Bridges Pulse Ox Last 24 Hr 97.3 F-98.6 F 66-81 18-21 116-156/59-70 94-97 General appearance: normal weight, no acute distress - Head Head exam: Present: normocephalic, atraumatic - Eye Eye exam: Present: EOMI. Absent: scleral icterus - Respiratory Respiratory exam: Present: clear to auscultation bilaterally - Cardiovascular Cardiovascular exam: Present: irregular rhythm - GI/Abdominal GI/Abdominal exam: Present: normal bowel sounds, soft. Absent: tenderness - Extremities Exam Extremities exam: Absent: edema Results - Labs CBC & BMP: 04/13/17 20:28 04/13/17 20:28 Lab Results: I have reviewed the past 24 hour labs Quality Measures - VTE Contraindication to Pharmacological VTE Prophylaxis: Already on Theraputic Agent , No Prophylaxis Needed
--- NOTE | 2017-04-16 17:00 | Cardiology Progress Note ---
Epi Santo Vanessa, RN, am scribing for, and in the presence of, Parker Durand MD 16 :59. Assessment and Plan - Time spent with patient Time spent with patient: Greater than 30 minutes (1) Dyspnea Status: Acute Assessment and plan: 86 year old BF with PMHx PAF, CAD, CVA, PAD. NSTEMI in 2014 with RCA occlusion not amenable to PCI and managed conservatively. Post cardioversion in 2014 and has been maintained in NSR and has been anticoagulated with Eliquis for stroke prevention. Recent admission in March for CHF exacerbation with elevated PA pressure 60 mmHg, normal systolic function. Now admitted with dyspnea, AFRVR, CHF. 1. DYSPNEA, CHF -improved. Still persists, with mild activity but not at rest anymore. Continue diuresis. Lasix IV 2. ATRIAL FIBRILLATION -rate is better controlled. May consider switching amiodarone to p.o. tomorrow. If the arrhythmia remains symptomatic, we may consider cardioversion. 3. HYPERTENSION -blood pressure still mildly elevated. Increase metoprolol to 25 mg twice daily Current Visit: Yes (2) Hypertension Status: Chronic Assessment and plan: SEE PLAN OF CARE LISTED ABOVE. Current Visit: Yes (3) Dyslipidemia Status: Chronic Assessment and plan: SEE PLAN OF CARE LISTED ABOVE. Current Visit: Yes (4) Paroxysmal atrial fibrillation Status: Chronic Assessment and plan: SEE PLAN OF CARE LISTED ABOVE. Current Visit: Yes (5) Chronic anticoagulation Status: Chronic Assessment and plan: SEE PLAN OF CARE LISTED ABOVE. Current Visit: No (6) GERD (gastroesophageal reflux disease) Status: Chronic Assessment and plan: SEE PLAN OF CARE LISTED ABOVE. Current Visit: No (7) History of CVA (cerebrovascular accident) Status: Chronic Assessment and plan: SEE PLAN OF CARE LISTED ABOVE. Current Visit: No (8) History of coronary artery disease Status: Chronic Assessment and plan: SEE PLAN OF CARE LISTED ABOVE. Current Visit: No Cardiology - PN: Subj Interval history: PRIMARY MEDICAID BUSINESS ANALYST: DR. KAM SUMMARY: Ms. Hobson is an 86 year old BF, with risk factors significant for: age, hypertension, dyslipidemia, known history of CAD, and she is a former smoker. Past medical history of persistent atrial fibrillation, PAD with claudication, CVA, GERD, COPD, and anxiety. Previous non-STEMI in September 2014 with subsequent C demonstrating proximal RCA occlusion which was not amenable to PCI, EF 50%. She has also required cardioversion in the past (2014), and when she was last evaluated by Dr. Kam in clinic in January 2017, amlodipine dosage decreased and beta-lilia increased to promote NSR. Required 2 day hospitalization in March 2017 for CHF exacerbation. During admission, echo showed EF 55% and pulmonary hypertension with PA pressure 60 mmHg. Patient was readmitted to hospital on April 15 after presenting to ED with c/o shortness of breath and productive cough with white sputum for several days. EKG noted her to be in atrial fib with ventricular response around 120. Chest x-ray with mild CHF and mild left pleural effusion. BNP mildly elevated, 526. Cardiology asked to see for assistance in management of CHF. She required transfer to tele unit for IV amiodarone infusion, now completed. April: Ms. Hobson appears comfortable this morning. No acute respiratory distress, and she agrees she is breathing better. Productive cough with clear sputum. No chest pain. Atrial fib/flutter with ventricular response in 60s this morning. Afebrile, BP stable. Troponin levels trending down. Creatinine 1.3 on 04/13. No BMP available this morning. Diuresing well with IV Lasix. Echocardiogram on 04/14 with normal LV systolic function, EF 55%, PA pressure 35 mmHg (improved). Reports appetite is good today. No N/V. Heart rate is better controlled. Still in A. fib. No significant proarrhythmia noted on telemetry. Exam (Progress Note) - Constitutional Vitals: Period Temp Pulse Resp BP Sys/Bridges Pulse Ox Last 24 Hr 97.3 F-98.6 F 66-81 15-21 116-156/59-70 93-99 Exam: General appearance: normal weight, no acute distress. Pleasant and cooperative. - Head Head exam: Present: normal inspection, normocephalic, atraumatic. Absent: hematoma, laceration - Eye Eye exam: Present: EOMI. Absent: conjunctival injection, nystagmus, periorbital swelling, scleral icterus, laceration to eyelids Pupils: Present: PERRL. Absent: constricted, dilated, fixed, irregular, unequal - ENT ENT exam: Present: normal exam, normal external ear exam - Neck Neck exam: Present: normal inspection. Absent: lymphadenopathy, meningismus, tenderness, thyromegaly - Respiratory Respiratory exam: Present: Crackles bibasilarly. Absent: accessory muscle use, chest wall tenderness. No wheeze, stridor. - Cardiovascular Cardiovascular exam: Present: Irregularly irregular rate and rhythm. Absent: carotid bruit, gallop, elev JVP, rubs, murmur - GI/Abdominal GI/Abdominal exam: Present: normal bowel sounds, soft. Absent: distended, firm , guarding, hernia, mass, tenderness, rebound. - Extremities Exam Extremities exam: Present: 1+ edema left lower extremity, normal capillary refill. Absent: calf tenderness - Back Exam Back exam: Present: normal inspection. Absent: muscle spasm, vertebral tenderness - Neurological Exam Neurological exam: Present: alert, oriented X3, grossly intact without resting or intention tremor - Psychiatric Psychiatric exam: Present: normal affect, normal mood. Patient is not anxious or depressed. - Skin Skin exam: Present: normal color, warm, dry, intact. Absent: cyanosis, diaphoretic, rash, urticaria Result/EKG - Labs CBC & BMP: 04/13/17 20:28 04/13/17 20:28 Lab Results: I have reviewed the past 24 hour labs Labs: Laboratory Results - last 24 hr 04/15/17 04/15/17 12:00 12:00 Total Creatine Kinase 44 CK-MB (CK-2) 1.1 Troponin I 0.274 H Free T4 1.36 TSH 3rd Generation 1.630 - Diagnostic Findings Procedure: Chest x-ray: image reviewed by me, report reviewed by me - EKG EKG results: interpreted by me, no acute changes (atrial flutter, occasional PVC ) Quality Measures - VTE Contraindication to Pharmacological VTE Prophylaxis: Already on Theraputic Agent , No Prophylaxis Needed Kizzy Santo Attila, MD, personally performed the services described in this documentation, ascribed by Christy Chowdary RN in my presence, and it is both accurate and complete .
[2017-04-16 19:20] LABS: Apearance,Urine CLEAR (Clear); Bacteria,Urine Occasional /HPF (Few); Bilirubin,Urine Negative (Negative); Blood, Urine Small mg/dL (Negative); Glucose,Urine (UA) Negative (Negative); Ketones,Urine Negative (Negative); Mucus,Urine Occasional /LPF (Occasional); Nitrite,Urine Negative (Negative); Protein,Urine Negative; RBC,Urine 3 /HPF (0-4); Squamous Epithelial Cell,Urine Occasional /HPF (0-10); Urine Color Straw (Yellow); Urine Specific Gravity 1.004 (1.001-1.035); Urine Urobilinogen < 2.0 EU/DL (0.2-1.0); WBC,Urine 9 /HPF (0-6)
[2017-04-16] MEDS: ROSUVASTATIN 10 MG TABLET PO SCH (21:06)
[2017-04-17 04:57] LABS: Basophils % 0.3 % (0.0-0.8); Eosinophils # 0.5 10*3/uL (0.0-0.87); Eosinophils % 5.7 % (0.00-10.9); Hematocrit 40.1 VOL% (35.7-47.0); Hemoglobin 12.5 GM/DL (12.0-16.0); Immature Granulocytes % 0.3 %; Immature Granulocytes Absolute 0.03 #; Lymphocytes # 2.1 10*3/uL (1.4-4.0); Mean Corpuscular HGB Conc 31.2 GM/DL (32-36); Mean Corpuscular Hemoglobin 26 PG (27-34); Mean Corpuscular Volume 81.8 FL (87-102); Mean Platelet Volume 12.2 FL (9.6-12.0); Monocytes # 1.2 10*3/uL (0.11-0.8); Monocytes % 12.3 % (1.7-12.7); Neutrophils # 5.6 10*3/uL (1.4-7.4); Neutrophils % 59.4 % (38.7-73.9); Platelet Count 207 T/CUMM (130-400); Red Cell Distribution Width 17.6 % (9.3-17.3); White Blood Count 9.4 T/CUMM (4-12)
[2017-04-17 05:17] LABS: Calcium 9.1 MG/DL (8.5-10.1); Magnesium 2.4 MG/DL (1.8-2.4); Osmolality,Calculated 277.7 MOS/KG (273-304); Potassium 4.1 MMOL/L (3.5-5.1)
[2017-04-17] MEDS: amLODIPine 10 MG TABLET PO SCH (09:26)
[2017-04-17] MEDS: PANTOPRAZOLE 40 MG TABLET PO SCH (09:26)
[2017-04-17] MEDS: METOPROLOL SUCCINATE XL 25 MG TABLET PO SCH ×2 (09:26→21:42)
[2017-04-17] MEDS: APIXABAN 2.5 MG TABLET PO SCH ×2 (09:26→21:41)
[2017-04-17] MEDS: LOSARTAN 50 MG TABLET PO SCH ×2 (09:26→21:42)
[2017-04-17] MEDS: ASPIRIN EC 81 MG TABLET PO SCH (09:27)
[2017-04-17] MEDS: FUROSEMIDE 40 MG/4 ML VIAL IV SCH ×2 (09:27→16:40)
[2017-04-17] MEDS: AMIODARONE INJ 450 MG in DEXTROSE 5% 241 ML IV SCH (12:42)
[2017-04-17] MEDS: ACETAMINOPHEN 325 MG TABLET PO PRN (12:42)
--- NOTE | 2017-04-17 13:18 | Hospitalist Progress Note ---
Assessment and Plan (1) Atrial fibrillation Status: Chronic Assessment and plan: 1)afib with RVR- rate controlled on amio infusion, remains in afib. chronically anticoagulated for paroxysmal afib. Her shortness of breath is better today. Anticipate cardiology converting her to oral amio today. 2)CHF- diastolic acute due to afib- diuresed, feeling better. 3)HTN- controlled. Current Visit: Yes (2) CHF exacerbation Status: Acute Current Visit: Yes (3) HTN (hypertension) Status: Chronic Current Visit: No Hospitalist: Subjective Interval history: Mrs Hobson is feeling ok today. Her heart rate does not feel fast to here. She denies shortness of breath. Seh has been up to walk n the hoyt with PT. Exam - Constitutional Vitals: Period Temp Pulse Resp BP Sys/Bridges Pulse Ox Last 24 Hr 97.0 F-97.9 F 60-70 14-21 123-145/60-70 97-99 General appearance: normal weight, no acute distress - Eye Eye exam: Present: EOMI. Absent: scleral icterus - Respiratory Respiratory exam: Present: rales. Absent: wheezes - Cardiovascular Cardiovascular exam: Present: irregular rhythm - GI/Abdominal GI/Abdominal exam: Present: normal bowel sounds, soft. Absent: tenderness - Extremities Exam Extremities exam: Absent: edema - Neurological Exam Neurological exam: Present: alert, oriented X3 Results - Labs CBC & BMP: 04/17/17 04:08 04/17/17 04:08 Lab Results: I have reviewed the past 24 hour labs Quality Measures - VTE Contraindication to Pharmacological VTE Prophylaxis: Already on Theraputic Agent , No Prophylaxis Needed
--- NOTE | 2017-04-17 17:26 | Cardiology Progress Note ---
Epi Santo Vanessa, RN, am scribing for, and in the presence of, Parker Durand MD 17 :24. Assessment and Plan - Time spent with patient Time spent with patient: Greater than 30 minutes (1) Dyspnea Status: Acute Assessment and plan: 86 year old BF with PMHx PAF, CAD, CVA, PAD. NSTEMI in 2014 with RCA occlusion not amenable to PCI and managed conservatively. Post cardioversion in 2014 and has been maintained in NSR and has been anticoagulated with Eliquis for stroke prevention. Recent admission in March for CHF exacerbation with elevated PA pressure 60 mmHg, normal systolic function. Now admitted with dyspnea, AFRVR, CHF. 1. DYSPNEA, CHF - continues to improve. Minimal dyspnea with exertion today. Continue diuresis with IV Lasix. Plan to switch to p.o. tomorrow 2. ATRIAL FIBRILLATION - rate is better controlled. Switch amiodarone to p.o. 200 mg twice daily. Continue anticoagulation with low-dose Eliquis. If the A. fib remains persistent but asymptomatic, despite amiodarone, over longer-term, may switch to a lower risk, rate control only strategy. Will need to follow-up with Dr. Reilly 3. HYPERTENSION -better controlled. Current Visit: Yes (2) Hypertension Status: Chronic Assessment and plan: SEE PLAN OF CARE LISTED ABOVE. Current Visit: Yes (3) Dyslipidemia Status: Chronic Assessment and plan: SEE PLAN OF CARE LISTED ABOVE. Current Visit: Yes (4) Paroxysmal atrial fibrillation Status: Chronic Assessment and plan: SEE PLAN OF CARE LISTED ABOVE. Current Visit: Yes (5) Chronic anticoagulation Status: Chronic Assessment and plan: SEE PLAN OF CARE LISTED ABOVE. Current Visit: No (6) GERD (gastroesophageal reflux disease) Status: Chronic Assessment and plan: SEE PLAN OF CARE LISTED ABOVE. Current Visit: No (7) History of CVA (cerebrovascular accident) Status: Chronic Assessment and plan: SEE PLAN OF CARE LISTED ABOVE. Current Visit: No (8) History of coronary artery disease Status: Chronic Assessment and plan: SEE PLAN OF CARE LISTED ABOVE. Current Visit: No Cardiology - PN: Subj Interval history: PRIMARY [employer] ADVISOR: DR. KAM SUMMARY: Ms. Hobson is an 86 year old BF, with risk factors significant for: age, hypertension, dyslipidemia, known history of CAD, and she is a former smoker. Past medical history of persistent atrial fibrillation, PAD with claudication, CVA, GERD, COPD, and anxiety. Previous non-STEMI in September 2014 with subsequent LHC demonstrating proximal RCA occlusion which was not amenable to PCI, EF 50%. She has also required cardioversion in the past (2014), and when she was last evaluated by Dr. Kam in clinic in January 2017, amlodipine dosage decreased and beta-lilia increased to promote NSR. Required 2 day hospitalization in March 2017 for CHF exacerbation. During admission, echo showed EF 55% and pulmonary hypertension with PA pressure 60 mmHg. Patient was readmitted to hospital on April 15 after presenting to ED with c/o shortness of breath and productive cough with white sputum for several days. EKG noted her to be in atrial fib with ventricular response around 120. Chest x-ray with mild CHF and mild left pleural effusion. BNP mildly elevated, 526. Cardiology asked to see for assistance in management of CHF. She required transfer to tele unit for IV amiodarone infusion. Echocardiogram on 04/14 with normal LV systolic function, EF 55%, PA pressure 35 mmHg (improved). April: Ms. Hobson is feeling better today. She is sitting up in chair, NAD. Reports she slept well last night. No CP, dyspnea. Atrial fib per cardiac monitoring. Brief episode of slow ventricular response, HR 40s but overall ventricular response stable in 60s. SBP 120-130 mmHg range today. Cell counts, electrolytes, and renal function stable today. UA yesterday with moderate leukocytosis. She has continued to diurese well with IV Lasix and is increasing her activity by ambulating hallways with PT assist. Exam (Progress Note) - Constitutional Vitals: Period Temp Pulse Resp BP Sys/Bridges Pulse Ox Last 24 Hr 97.0 F-97.9 F 60-70 14-21 123-158/60-70 95-99 Exam: General appearance: normal weight, no acute distress. Pleasant and cooperative. - Head Head exam: Present: normal inspection, normocephalic, atraumatic. Absent: hematoma, laceration - Eye Eye exam: Present: EOMI. Absent: conjunctival injection, nystagmus, periorbital swelling, scleral icterus, laceration to eyelids Pupils: Present: PERRL. Absent: constricted, dilated, fixed, irregular, unequal - ENT ENT exam: Present: normal exam, normal external ear exam - Neck Neck exam: Present: normal inspection. Absent: lymphadenopathy, meningismus, tenderness, thyromegaly - Respiratory Respiratory exam: Present: minimal crackles bibasilarly- improved. Absent: accessory muscle use, chest wall tenderness. No wheeze, stridor. - Cardiovascular Cardiovascular exam: Present: Irregularly irregular rate and rhythm. Absent: carotid bruit, gallop, JVD, rubs, murmur - GI/Abdominal GI/Abdominal exam: Present: normal bowel sounds, soft. Absent: distended, firm , guarding, hernia, mass, tenderness, rebound. - Extremities Exam Extremities exam: Present: 1+ edema left lower extremity, normal capillary refill. Absent: calf tenderness - Back Exam Back exam: Present: normal inspection. Absent: muscle spasm, vertebral tenderness - Neurological Exam Neurological exam: Present: alert, oriented X3, grossly intact without resting or intention tremor - Psychiatric Psychiatric exam: Present: normal affect, normal mood. Patient is not anxious or depressed. - Skin Skin exam: Present: normal color, warm, dry, intact. Absent: cyanosis, diaphoretic, rash, urticaria Result/EKG - Labs CBC & BMP: 04/17/17 04:08 04/17/17 04:08 Lab Results: I have reviewed the past 24 hour labs Labs: Laboratory Results - last 24 hr 04/16/17 04/17/17 04/17/17 19:20 04:08 04:08 WBC 9.4 RBC 4.90 Hgb 12.5 Hct 40.1 MCV 81.8 L MCH 26 L MCHC 31.2 L RDW 17.6 H Plt Count 207 D MPV 12.2 H Neut % (Auto) 59.4 Lymph % (Auto) 22.0 Chase % (Auto) 12.3 Eos % (Auto) 5.7 Baso % (Auto) 0.3 Neut # (Auto) 5.6 Lymph # (Auto) 2.1 Chase # (Auto) 1.2 H Eos # (Auto) 0.5 Baso # (Auto) 0.0 Immature Gran % 0.3 Nucleated RBC % 0.0 Immature Gran # 0.03 Nucleated RBCs # 0.00 Immature Plt Fraction 0.0 Sodium 138 Potassium 4.1 Chloride 101 Carbon Dioxide 31 Anion Gap 10.1 BUN 18 Creatinine 1.20 H GFR Calculation 45 BUN/Creatinine Ratio 15.00 Glucose 111 H Calculated Osmolality 277.7 Calcium 9.1 Magnesium 2.4 Urine Color Straw Urine Appearance Clear Urine pH 7.0 Ur Specific Bronson 1.004 Urine Protein Negative Urine Glucose (UA) Negative Urine Ketones Negative Urine Blood Small Urine Nitrate Negative Urine Bilirubin Negative Urine Urobilinogen < 2.0 H Urine Leukocytes Moderate H Urine RBC 3 Urine WBC 9 Ur Squamous Epith Cells Occasional Urine Bacteria Occasional Urine Mucus Occasional Ur Culture Indicated? Results to follow - Diagnostic Findings Procedure: Chest x-ray: image reviewed by me, report reviewed by me - EKG EKG results: interpreted by me, no acute changes EKG shows: atrial fibrillation Quality Measures - VTE Contraindication to Pharmacological VTE Prophylaxis: Already on Theraputic Agent , No Prophylaxis Needed Kizzy Santo Attila, MD, personally performed the services described in this documentation, ascribed by Christy Chowdary RN in my presence, and it is both accurate and complete [id number] .
[2017-04-17] MEDS: AMIODARONE 200 MG TABLET PO SCH (21:42)
[2017-04-17] MEDS: ROSUVASTATIN 10 MG TABLET PO SCH (21:42)
[2017-04-17] MEDS: ZALEPLON 5 MG CAPSULE PO PRN (21:42)
[2017-04-18] MEDS: FUROSEMIDE 40 MG/4 ML VIAL IV SCH (08:37)
[2017-04-18] MEDS: APIXABAN 2.5 MG TABLET PO SCH ×2 (08:56→21:39)
[2017-04-18] MEDS: ASPIRIN EC 81 MG TABLET PO SCH (08:56)
[2017-04-18] MEDS: LOSARTAN 50 MG TABLET PO SCH ×2 (08:56→21:39)
[2017-04-18] MEDS: AMIODARONE 200 MG TABLET PO SCH ×2 (08:56→21:39)
[2017-04-18] MEDS: amLODIPine 10 MG TABLET PO SCH (08:56)
[2017-04-18] MEDS: PANTOPRAZOLE 40 MG TABLET PO SCH (08:56)
[2017-04-18] MEDS: METOPROLOL SUCCINATE XL 25 MG TABLET PO SCH ×2 (08:56→21:39)
[2017-04-18] MEDS ORDERED: FUROSEMIDE 40 MG TABLET PO ONE (09:15)
--- NOTE | 2017-04-18 14:31 | Hospitalist Progress Note ---
Assessment and Plan (1) Atrial fibrillation Status: Chronic Assessment and plan: 1)afib with RVR- rate of afib now in 40s-amio dose decreased. home tomorrow if rate ok. chronically anticoagulated for paroxysmal afib. SOB resolved. 2)CHF- diastolic acute due to afib- diuresed, feeling better. 3)HTN- controlled. Current Visit: Yes (2) CHF exacerbation Status: Acute Current Visit: Yes (3) HTN (hypertension) Status: Chronic Current Visit: No Hospitalist: Subjective Interval history: Mrs Hobson is feeling ok and rested better after getting something for sleep last night. Her heart rate is in the 40s. Exam - Constitutional Vitals: Period Temp Pulse Resp BP Sys/Bridges Pulse Ox Last 24 Hr 96.3 F-97.9 F 49-122 16-22 111-138/58-84 97-100 General appearance: normal weight, no acute distress - Eye Eye exam: Present: EOMI. Absent: scleral icterus - Respiratory Respiratory exam: Present: clear to auscultation bilaterally - Cardiovascular Cardiovascular exam: Present: irregular rhythm - GI/Abdominal GI/Abdominal exam: Present: normal bowel sounds, soft. Absent: tenderness - Extremities Exam Extremities exam: Absent: edema Results - Labs CBC & BMP: 04/17/17 04:08 04/17/17 04:08 Lab Results: I have reviewed the past 24 hour labs Quality Measures - VTE Contraindication to Pharmacological VTE Prophylaxis: Already on Theraputic Agent , No Prophylaxis Needed
[2017-04-18] MEDS ORDERED: FUROSEMIDE 40 MG TABLET PO SCH (16:00)
[2017-04-18] MEDS: FUROSEMIDE 40 MG TABLET PO SCH (16:24)
[2017-04-18] MEDS ORDERED: VANCOMYCIN INJ 1,000 MG in SODIUM CHLORIDE 0.9% 250 ML IV SCH (17:00)
--- NOTE | 2017-04-18 19:16 | Cardiology Progress Note ---
Epi Santo Vanessa, RN, am scribing for, and in the presence of, Parker Durand MD 19 :14. Assessment and Plan - Time spent with patient Time spent with patient: Greater than 30 minutes (1) Dyspnea Status: Acute Assessment and plan: 86 year old BF with PMHx PAF, CAD, CVA, PAD. NSTEMI in 2014 with RCA occlusion not amenable to PCI and managed conservatively. Post cardioversion in 2014 and has been maintained in NSR and has been anticoagulated with Eliquis for stroke prevention. Recent admission in March for CHF exacerbation with elevated PA pressure 60 mmHg, normal systolic function. Now admitted with dyspnea, AFRVR, CHF. 1. DYSPNEA, CHF - continues to improve. little to no exertional dyspnea with exertion today. Cont Lasix 40 mg bid. May need to cut back to daily dose if continues to 2. ATRIAL FIBRILLATION -RVR resolved. Continue amiodarone 200 mg twice daily. Cut back to 200 mg daily in a week. If rest heart rate remains less than 60, may decrease metoprolol. Continue anticoagulation with low-dose Eliquis. -If the A. fib remains persistent but asymptomatic, despite amiodarone, over longer-term, may switch to a lower risk, rate control only strategy. Will need to follow-up with Dr. Reilly 3. HYPERTENSION -well controlled From a cardiac perspective, she is more stable, we may continue to follow her up as an outpatient Current Visit: Yes (2) Hypertension Status: Chronic Assessment and plan: SEE PLAN OF CARE LISTED ABOVE. Current Visit: Yes (3) Dyslipidemia Status: Chronic Assessment and plan: SEE PLAN OF CARE LISTED ABOVE. Current Visit: Yes (4) Paroxysmal atrial fibrillation Status: Chronic Assessment and plan: SEE PLAN OF CARE LISTED ABOVE. Current Visit: Yes (5) Chronic anticoagulation Status: Chronic Assessment and plan: SEE PLAN OF CARE LISTED ABOVE. Current Visit: No (6) GERD (gastroesophageal reflux disease) Status: Chronic Assessment and plan: SEE PLAN OF CARE LISTED ABOVE. Current Visit: No (7) History of CVA (cerebrovascular accident) Status: Chronic Assessment and plan: SEE PLAN OF CARE LISTED ABOVE. Current Visit: No (8) History of coronary artery disease Status: Chronic Assessment and plan: SEE PLAN OF CARE LISTED ABOVE. Current Visit: No Cardiology - PN: Subj Interval history: PRIMARY BUSSER: DR. KAM SUMMARY: Ms. Hobson is an 86 year old BF, with risk factors significant for: age, hypertension, dyslipidemia, known history of CAD, and she is a former smoker. Past medical history of persistent atrial fibrillation, PAD with claudication, CVA, GERD, COPD, and anxiety. Previous non-STEMI in September 2014 with subsequent LHC demonstrating proximal RCA occlusion which was not amenable to PCI, EF 50%. She has also required cardioversion in the past (2014), and when she was last evaluated by Dr. Kam in clinic in January 2017, amlodipine dosage decreased and beta-lilia increased to promote NSR. Required 2 day hospitalization in March 2017 for CHF exacerbation. During admission, echo showed EF 55% and pulmonary hypertension with PA pressure 60 mmHg. Patient was readmitted to hospital on April 15 after presenting to ED with c/o shortness of breath and productive cough with white sputum for several days. EKG noted her to be in atrial fib with ventricular response around 120. Chest x-ray with mild CHF and mild left pleural effusion. BNP mildly elevated, 526. Cardiology asked to see for assistance in management of CHF. She required transfer to tele unit for IV amiodarone infusion. Echocardiogram on 04/14 with normal LV systolic function, EF 55%, PA pressure 35 mmHg (improved). April: Ms. Hobson continues to feel better. No complaints this morning. Continuing to increase activity, PT assisting. Atrial fib per tele. Bradycardic earlier this morning, briefly, but ventricular response overall in 60s. She is slightly tachycardic this afternoon with pulse rate 110s. Labs reviewed and overall unremarkable. Electrolytes and renal function within acceptable range. Exam (Progress Note) - Constitutional Vitals: Period Temp Pulse Resp BP Sys/Bridges Pulse Ox Last 24 Hr 96.3 F-97.5 F 49-115 16-20 128-140/60-84 97-99 Exam: General appearance: normal weight, no acute distress. Pleasant and cooperative. - Head Head exam: Present: normal inspection, normocephalic, atraumatic. Absent: hematoma, laceration - Eye Eye exam: Present: EOMI. Absent: conjunctival injection, nystagmus, periorbital swelling, scleral icterus, laceration to eyelids Pupils: Present: PERRL. Absent: constricted, dilated, fixed, irregular, unequal - ENT ENT exam: Present: normal exam, normal external ear exam - Neck Neck exam: Present: normal inspection. Absent: lymphadenopathy, meningismus, tenderness, thyromegaly - Respiratory Respiratory exam: Present: faint rales bibasilarly. Absent: accessory muscle use, chest wall tenderness. No wheeze, stridor. - Cardiovascular Cardiovascular exam: Present: Irregularly irregular rate and rhythm. Absent: carotid bruit, gallop, JVD, rubs, murmur - GI/Abdominal GI/Abdominal exam: Present: normal bowel sounds, soft. Absent: distended, firm , guarding, hernia, mass, tenderness, rebound. - Extremities Exam Extremities exam: Present: trace edema left lower extremity, no edema of right lower extremity, normal capillary refill. Absent: calf tenderness - Back Exam Back exam: Present: normal inspection. Absent: muscle spasm, vertebral tenderness - Neurological Exam Neurological exam: Present: alert, oriented X3, grossly intact without resting or intention tremor - Psychiatric Psychiatric exam: Present: normal affect, normal mood. Patient is not anxious or depressed. - Skin Skin exam: Present: normal color, warm, dry, intact. Absent: cyanosis, diaphoretic, rash, urticaria Result/EKG - Labs CBC & BMP: 04/17/17 04:08 04/17/17 04:08 Lab Results: I have reviewed the past 24 hour labs - EKG EKG results: interpreted by me, no acute changes EKG shows: atrial fibrillation Quality Measures - VTE Contraindication to Pharmacological VTE Prophylaxis: Already on Theraputic Agent , No Prophylaxis Needed Kizzy Santo Attila, MD, personally performed the services described in this documentation, ascribed by Christy Chowdary RN in my presence, and it is both accurate and complete [id number] .
[2017-04-18] MEDS: ROSUVASTATIN 10 MG TABLET PO SCH (21:39)
[2017-04-18] MEDS: ZALEPLON 5 MG CAPSULE PO PRN (21:39)
[2017-04-19] MEDS: METOPROLOL SUCCINATE XL 25 MG TABLET PO SCH (08:02)
[2017-04-19] MEDS: LOSARTAN 50 MG TABLET PO SCH (08:02)
[2017-04-19] MEDS: APIXABAN 2.5 MG TABLET PO SCH (08:02)
[2017-04-19] MEDS: PANTOPRAZOLE 40 MG TABLET PO SCH (08:02)
[2017-04-19] MEDS: FUROSEMIDE 40 MG TABLET PO SCH ×2 (08:02→16:25)
[2017-04-19] MEDS: amLODIPine 10 MG TABLET PO SCH (08:02)
[2017-04-19] MEDS: AMIODARONE 200 MG TABLET PO SCH (08:02)
[2017-04-19] MEDS: ASPIRIN EC 81 MG TABLET PO SCH (08:02)
--- NOTE | 2017-04-19 12:42 | Discharge Summary ---
Hospital Course - Hospital Course Hospital Course: Mrs Hobson presented with afib and an exacerbation of heart failure with pulmonary edema. She was seen by cardiology. Her rate is controlled with amiodaronen now. She is on anticoagulation. Also she was diuresed with lasix and her edema resolved. She also has pulmonary HTN, and normal systolic dysfunction. She is feeling back to her baseline and is ready to go home. She will follow up with her employment security officer Dr Ureña and her PCP DR Saunders. - Time spent with patient Time with patient DS: Greater than 30 minutes (care coordination, discharge planning, medicine reconciliation, documentation) Diagnosis - Discharge Diagnosis (1) Atrial fibrillation Status: Chronic (2) CHF exacerbation Status: Resolved (3) HTN (hypertension) Status: Chronic Specialty Discharge - Follow Up or Referrals Follow up with: Mitra Saunders [Primary Care Provider] - 5 Days (APRIL 23, 2017 AT 9:15 AM) Misha Ureña MD [Physician] - 2 Weeks (a fib, CHF 2016 AT 12:40 PM) Discharge Plan - Discharge Data Disposition: Disch To Home/Self Care Condition at Discharge: Stable Discharge Diet: heart healthy Activity: resume usual activities as tolerated - Discharge Medications New Amiodarone Tab [Cordarone Tab] 200 mg PO BID #14 tablet Amiodarone Tab [Cordarone Tab] 200 mg PO DAILY #60 tablet Aspirin EC Tab 81 mg PO DAILY tablet Ciprofloxacin Tab [Cipro Tab] 250 mg PO BID #14 tablet Furosemide Tab [Lasix Tab] 40 mg PO DAILY #30 tablet Metoprolol Succinate Xl [Toprol Xl] 25 mg PO BID #60 tablet Rosuvastatin [Crestor] 10 mg PO BEDTIME tablet Continue amLODIPine [Norvasc] 10 mg PO DAILY Apixaban [Eliquis] 1 tablet PO BID Pantoprazole Tab [Protonix Tab] 40 mg PO DAILY Cetirizine HCl [Cetirizine Tab] 10 mg PO DAILY Losartan [Cozaar] 50 mg PO BID #60 tablet Potassium Chloride Cap/Tab [K Dur] 10 meq PO QOTHER DAY Discontinued Carvedilol 3.125 mg PO BID Furosemide Tab [Lasix Tab] 20 mg PO DAILY #30 tablet Nitrofurantoin Macro/Ascension [Macrobid] 100 mg PO BID #14 capsule - Follow Up or Referral Follow Up: Mitra Saunders [Primary Care Provider] - 5 Days (APRIL 23, 2017 AT 9:15 AM) Misha Ureña MD [Physician] - 2 Weeks (a fib, CHF 2016 AT 12:40 PM) - Forms/Instructions Additional Discharge Instructions: if you begin to have extra fluid in your ankles or moreshortness of breath, take the lasix 2 times a day and let the employment security officer office know. Exam - Constitutional Vitals: Period Temp Pulse Resp BP Sys/Bridges Pulse Ox Last 24 Hr 97.1 F-99.3 F 52-69 18-20 107-123/44-65 96-99 General appearance: normal weight, no acute distress - Head Head exam: Present: normocephalic, atraumatic - Eye Eye exam: Present: EOMI. Absent: scleral icterus - Respiratory Respiratory exam: Present: clear to auscultation bilaterally - Cardiovascular Cardiovascular exam: Present: irregular rhythm - GI/Abdominal GI/Abdominal exam: Present: normal bowel sounds, soft. Absent: tenderness - Extremities Exam Extremities exam: Absent: edema Discharge Results Procedures and tests throughout hospitalization: Pending Orders 04/16/17 Urine Culture Routine Labs on day of discharge: Preliminary micro results at discharge 04/16/17 Unknown Urine Culture - Preliminary Urine,Voided Gram Positive Cocci DS: Provider Date of admission: 04/14/17 00:06 Primary care physician: Mitra Saunders Attending physician on admission: Boogie Mraio MD Consults: 04/15/17 10:35 Consult to Physical Therapy [CONS] Routine Reason for Physical Therapy: Evaluate and Treat 04/15/17 11:26 Consult to Physician [CONS] Routine Comment: cardiology Consulting Provider: Person Notified: Dr Avelar Date Notified: 04/15/17 Time Notified: 11:30 Consult Notification Comment: will see today 04/15/17 11:32 Consult to Physician [CONS] Routine Comment: Consulting Provider: 04/18/17 14:37 Consult to Pharmacy [CONS] Routine Reason for Pharmacy Consult: Dose/Manage Antibiotics Dose/Manage Vancomycin Comment: please adjust antibiotic doses for renal disease Discharging clinician: Gisel Lantigua MD
--- NOTE | 2017-04-19 13:53 | Physician Query Form ---
CLICK EDIT DOCUMENT TO SELECT QUERY ANSWER --> OK --> SIGN Michelle Sue RN Clinical Carpenter Assistant W) [phone] (f) [phone] [email or web address] PROVIDERS: Make your selection(s) from the choices in EACH section by typing an "x" and enter comments in the comment section. Please use your independent medical judgment in providing your response. This request does not imply that any particular answer is desired or expected. CLINICAL INDICATORS: (Providers should not edit this section) Based on documentation of " urine culture results Gram positive cocci over 100, 000 colonies. Begin vancomycin". Based on the above, could you clarify the appropriate diagnosis, if significant , that supports the above abnormalities and additional evaluation, monitoring, and/or treatment rendered: (x ) Pt. treated for UTI ( ) Pt. not treated for UTI ( ) Other, please specify: ( ) Clinically unable to determine COMMENTS: PLEASE ALSO DOCUMENT RESPONSE IN PROGRESS NOTES AND/OR DISCHARGE SUMMARY Use of terms such as suspected, likely, or probable (associated with a specific diagnosis that is being evaluated, monitored, or treated as if it exists) are acceptable and can be restated in the discharge summary if not ruled out. [facility]
[2017-04-19 15:38] VITALS: BP 102/60
== END 2017-04-19 16:37 | disposition home or self-care (01) | DRG 292 ==
LOC: N.ED 18:16 → N.EDINP 04-14 00:05 → SUATTDRO 04-14 00:05 → N.2E 04-14 00:48 → N.TELEN 04-15 20:04
PROVIDERS: ADMIT Internal Medicine; ATTEND Internal Medicine

== ENCOUNTER 2017-07-15 06:51 | Inpatient (IN) ==
[2017-07-15] MEDS ORDERED: FUROSEMIDE 100 MG/10 ML VIAL IV STA (07:15)
[2017-07-15] MEDS ORDERED: MORPHINE 2 MG/1 ML SYRINGE IV STA (07:16)
[2017-07-15 07:41] LABS: Basophils % 0.5 % (0.0-0.8); Eosinophils # 0.1 10*3/uL (0.0-0.87); Eosinophils % 1.6 % (0.00-10.9); Hematocrit 40.2 VOL% (35.7-47.0); Hemoglobin 12.7 GM/DL (12.0-16.0); Immature Granulocytes % 0.4 %; Immature Granulocytes Absolute 0.03 #; Lymphocytes # 1.1 10*3/uL (1.4-4.0); Lymphocytes % 15.5 % (21.3-54.2); Mean Corpuscular HGB Conc 31.6 GM/DL (32-36); Mean Corpuscular Hemoglobin 27 PG (27-34); Mean Corpuscular Volume 86.5 FL (87-102); Mean Platelet Volume 11.1 FL (9.6-12.0); Monocytes # 0.7 10*3/uL (0.11-0.8); Monocytes % 9.3 % (1.7-12.7); Neutrophils # 5.3 10*3/uL (1.4-7.4); Neutrophils % 72.7 % (38.7-73.9); Platelet Count 160 T/CUMM (130-400); Red Blood Count 4.65 MC/CUMM (3.8-5.5); White Blood Count 7.3 T/CUMM (4-12)
[2017-07-15] MEDS ORDERED: FUROSEMIDE 40 MG/4 ML VIAL ONE (07:43)
[2017-07-15] MEDS ORDERED: MORPHINE 2 MG/1 ML SYRINGE ONE (07:44)
[2017-07-15 08:11] LABS: Apearance,Urine CLEAR (Clear); Bilirubin,Urine Negative (Negative); Blood, Urine Negative (Negative); Glucose,Urine (UA) Negative (Negative); Ketones,Urine Negative (Negative); Mucus,Urine Occasional /LPF (Occasional); Nitrite,Urine Negative (Negative); Protein,Urine Negative; RBC,Urine <1 /HPF (0-4); Squamous Epithelial Cell,Urine Occasional /HPF (0-10); Urine Color Straw (Yellow); Urine Specific Gravity 1.011 (1.001-1.035); Urine Urobilinogen < 2.0 EU/DL (0.2-1.0); WBC,Urine <1 /HPF (0-6)
[2017-07-15 08:20] LABS: Albumin 3.3 G/DL (3.4-5.0); Bilirubin,Total 0.7 MG/DL (0.2-1.0); Calcium 8.7 MG/DL (8.5-10.1); Magnesium 2.6 MG/DL (1.8-2.4); Osmolality,Calculated 277.5 MOS/KG (273-304); Potassium 5.7 MMOL/L (3.5-5.1); Total Protein 7.2 G/DL (6.4-8.3)
[2017-07-15 08:28] LABS: Troponin I Only 0.222 NG/ML (0.00-0.045)
[2017-07-15] MEDS ORDERED: ONDANSETRON 4 MG/2 ML VIAL IV PRN (09:28)
[2017-07-15] MEDS ORDERED: ACETAMINOPHEN 325 MG TABLET PO PRN ×2 (09:28)
[2017-07-15] MEDS ORDERED: DOCUSATE SODIUM 100 MG CAPSULE PO PRN (09:28)
[2017-07-15] MEDS ORDERED: guaiFENesin/DM ER 600-30 MG TABLET PO PRN (09:28)
[2017-07-15] MEDS ORDERED: diphenhydrAMINE CAP 25 MG CAPSULE PO PRN (09:28)
[2017-07-15] MEDS ORDERED: MORPHINE 2 MG/1 ML SYRINGE IV PRN (09:28)
[2017-07-15] MEDS ORDERED: PANTOPRAZOLE 40 MG TABLET PO SCH (09:30)
[2017-07-15] MEDS: amLODIPine 10 MG TABLET PO SCH (10:37)
[2017-07-15] MEDS: ASPIRIN EC 81 MG TABLET PO SCH (10:37)
[2017-07-15] MEDS: LOSARTAN 50 MG TABLET PO SCH ×2 (10:37→21:22)
[2017-07-15] MEDS: CIPROFLOXACIN 250 MG TABLET PO SCH ×2 (10:37→21:22)
[2017-07-15] MEDS: PANTOPRAZOLE 40 MG TABLET PO SCH (10:37)
[2017-07-15] MEDS: AMIODARONE 200 MG TABLET PO SCH ×2 (10:37→21:23)
[2017-07-15] MEDS: APIXABAN 2.5 MG TABLET PO SCH ×2 (10:37→21:24)
[2017-07-15] MEDS: METOPROLOL SUCCINATE XL 25 MG TABLET PO SCH ×2 (10:37→21:22)
[2017-07-15] MEDS: CETIRIZINE 10 MG TABLET PO SCH (10:38)
[2017-07-15] MEDS: FUROSEMIDE 40 MG/4 ML VIAL IV SCH ×2 (15:57→23:17)
[2017-07-15] MEDS: ROSUVASTATIN 10 MG TABLET PO SCH (23:17)
[2017-07-16 04:28] LABS: Basophils % 0.4 % (0.0-0.8); Eosinophils # 0.1 10*3/uL (0.0-0.87); Hemoglobin 13.3 GM/DL (12.0-16.0); Immature Granulocytes % 0.3 %; Immature Granulocytes Absolute 0.02 #; Lymphocytes # 1.2 10*3/uL (1.4-4.0); Lymphocytes % 17.2 % (21.3-54.2); Mean Corpuscular HGB Conc 31.7 GM/DL (32-36); Mean Corpuscular Hemoglobin 27 PG (27-34); Mean Corpuscular Volume 85.5 FL (87-102); Monocytes # 0.9 10*3/uL (0.11-0.8); Neutrophils # 4.8 10*3/uL (1.4-7.4); Neutrophils % 67.1 % (38.7-73.9); Platelet Count 206 T/CUMM (130-400); Red Blood Count 4.91 MC/CUMM (3.8-5.5); Red Cell Distribution Width 19.6 % (9.3-17.3); White Blood Count 7.2 T/CUMM (4-12)
[2017-07-16 05:02] LABS: Magnesium 2.4 MG/DL (1.8-2.4); Osmolality,Calculated 281.4 MOS/KG (273-304); Potassium 4.1 MMOL/L (3.5-5.1)
[2017-07-16] MEDS: FUROSEMIDE 40 MG/4 ML VIAL IV SCH ×3 (09:02→23:25)
[2017-07-16] MEDS: amLODIPine 10 MG TABLET PO SCH (09:03)
[2017-07-16] MEDS: LOSARTAN 50 MG TABLET PO SCH ×2 (09:03→21:14)
[2017-07-16] MEDS: METOPROLOL SUCCINATE XL 25 MG TABLET PO SCH ×2 (09:03→21:14)
[2017-07-16] MEDS: APIXABAN 2.5 MG TABLET PO SCH ×2 (09:04→21:15)
[2017-07-16] MEDS: ASPIRIN EC 81 MG TABLET PO SCH (09:04)
[2017-07-16] MEDS: AMIODARONE 200 MG TABLET PO SCH ×2 (09:04→21:14)
[2017-07-16] MEDS: CETIRIZINE 10 MG TABLET PO SCH (09:04)
[2017-07-16] MEDS: CIPROFLOXACIN 250 MG TABLET PO SCH (09:04)
[2017-07-16] MEDS: PANTOPRAZOLE 40 MG TABLET PO SCH (09:04)
[2017-07-16] MEDS: ROSUVASTATIN 10 MG TABLET PO SCH (21:14)
[2017-07-17 09:54] LABS: Calcium 9.1 MG/DL (8.5-10.1); Magnesium 2.5 MG/DL (1.8-2.4); Osmolality,Calculated 283.5 MOS/KG (273-304); Potassium 4.4 MMOL/L (3.5-5.1)
[2017-07-17] MEDS: FUROSEMIDE 40 MG/4 ML VIAL IV SCH ×2 (11:30→17:30)
[2017-07-17] MEDS: AMIODARONE 200 MG TABLET PO SCH ×2 (11:31→20:25)
[2017-07-17] MEDS: LOSARTAN 50 MG TABLET PO SCH ×2 (11:31→20:24)
[2017-07-17] MEDS: ASPIRIN EC 81 MG TABLET PO SCH (11:31)
[2017-07-17] MEDS: APIXABAN 2.5 MG TABLET PO SCH ×2 (11:31→20:24)
[2017-07-17] MEDS: amLODIPine 10 MG TABLET PO SCH (11:32)
[2017-07-17] MEDS: METOPROLOL SUCCINATE XL 25 MG TABLET PO SCH ×2 (11:32→20:24)
[2017-07-17] MEDS: CETIRIZINE 10 MG TABLET PO SCH (11:32)
[2017-07-17] MEDS: PANTOPRAZOLE 40 MG TABLET PO SCH (11:32)
[2017-07-17] MEDS: ROSUVASTATIN 10 MG TABLET PO SCH (20:24)
[2017-07-18 08:10] VITALS: BP 132/62
[2017-07-18] MEDS ORDERED: FUROSEMIDE 40 MG TABLET PO SCH (09:00)
[2017-07-18] MEDS: ASPIRIN EC 81 MG TABLET PO SCH (10:04)
[2017-07-18] MEDS: CETIRIZINE 10 MG TABLET PO SCH (10:05)
[2017-07-18] MEDS: LOSARTAN 50 MG TABLET PO SCH (10:05)
[2017-07-18] MEDS: APIXABAN 2.5 MG TABLET PO SCH (10:05)
[2017-07-18] MEDS: METOPROLOL SUCCINATE XL 25 MG TABLET PO SCH (10:05)
[2017-07-18] MEDS: PANTOPRAZOLE 40 MG TABLET PO SCH (10:05)
[2017-07-18] MEDS: AMIODARONE 200 MG TABLET PO SCH (10:06)
[2017-07-18] MEDS: amLODIPine 10 MG TABLET PO SCH (10:16)
== END 2017-07-18 11:20 | disposition home health service (06) | DRG 293 ==
LOC: N.ED 06:51 → N.EDINP 09:02 → SUATTDRO 09:02 → N.EDINP 09:40 → N.TELEN 09:46
PROVIDERS: ADMIT Internal Medicine Geriatric Medicine; ATTEND Family Medicine

== ENCOUNTER 2017-09-03 09:24 | Inpatient (IN) ==
[2017-09-03 10:41] LABS: Basophils % 0.6 % (0.0-0.8); Eosinophils # 0.1 10*3/uL (0.0-0.87); Eosinophils % 1.9 % (0.00-10.9); Hematocrit 47.5 VOL% (35.7-47.0); Hemoglobin 14.4 GM/DL (12.0-16.0); Immature Granulocytes % 0.6 %; Immature Granulocytes Absolute 0.03 #; Lymphocytes # 0.9 10*3/uL (1.4-4.0); Lymphocytes % 15.9 % (21.3-54.2); Mean Corpuscular HGB Conc 30.3 GM/DL (32-36); Mean Corpuscular Hemoglobin 27 PG (27-34); Mean Corpuscular Volume 90.3 FL (87-102); Mean Platelet Volume 11.1 FL (9.6-12.0); Monocytes # 0.6 10*3/uL (0.11-0.8); Monocytes % 10.9 % (1.7-12.7); Neutrophils # 3.7 10*3/uL (1.4-7.4); Neutrophils % 70.1 % (38.7-73.9); Platelet Count 168 T/CUMM (130-400); Red Blood Count 5.26 MC/CUMM (3.8-5.5); Red Cell Distribution Width 17.7 % (9.3-17.3); White Blood Count 5.3 T/CUMM (4-12)
[2017-09-03 11:04] LABS: INR 1.1; PT Patient Result 11.1 SECS; Partial Thromboplastin Time 30.3 SECS (0-40)
[2017-09-03 11:08] LABS: Troponin I Only 0.229 NG/ML (0.00-0.045)
[2017-09-03 11:15] LABS: Albumin 3.6 G/DL (3.4-5.0); Bilirubin,Total 0.6 MG/DL (0.2-1.0); Calcium 9.1 MG/DL (8.5-10.1); Osmolality,Calculated 280.3 MOS/KG (273-304); Potassium 4.3 MMOL/L (3.5-5.1); Total Protein 7.8 G/DL (6.4-8.3)
[2017-09-03] MEDS ORDERED: FUROSEMIDE 40 MG/4 ML VIAL IV STA (11:54)
[2017-09-03] MEDS ORDERED: FUROSEMIDE 40 MG/4 ML VIAL ONE (12:55)
[2017-09-03] MEDS ORDERED: DOCUSATE SODIUM 100 MG CAPSULE PO PRN (13:39)
[2017-09-03] MEDS ORDERED: ONDANSETRON 4 MG/2 ML VIAL IV PRN (13:39)
[2017-09-03] MEDS ORDERED: ENOXAPARIN 30 MG/0.3 ML SYRINGE SUBCUT SCH (14:00)
[2017-09-03] MEDS: GABAPENTIN 300 MG CAPSULE PO SCH ×2 (15:12→20:37)
[2017-09-03] MEDS: ROSUVASTATIN 10 MG TABLET PO SCH (20:37)
[2017-09-03] MEDS: AMIODARONE 200 MG TABLET PO SCH (20:38)
[2017-09-03] MEDS: METOPROLOL SUCCINATE XL 25 MG TABLET PO SCH (20:38)
[2017-09-03] MEDS: APIXABAN 2.5 MG TABLET PO SCH (20:38)
[2017-09-04 07:19] LABS: Albumin 3.2 G/DL (3.4-5.0); Bilirubin,Total 0.9 MG/DL (0.2-1.0); Calcium 8.7 MG/DL (8.5-10.1); Magnesium 2.4 MG/DL (1.8-2.4); Osmolality,Calculated 285.1 MOS/KG (273-304); Potassium 4.4 MMOL/L (3.5-5.1); Total Protein 6.4 G/DL (6.4-8.3)
[2017-09-04] MEDS ORDERED: FUROSEMIDE 40 MG/4 ML VIAL IV SCH (09:00)
[2017-09-04] MEDS ORDERED: PANTOPRAZOLE 40 MG TABLET PO SCH (09:00)
[2017-09-04] MEDS: METOPROLOL SUCCINATE XL 25 MG TABLET PO SCH ×2 (09:12→20:58)
[2017-09-04] MEDS: PANTOPRAZOLE 40 MG TABLET PO SCH (09:12)
[2017-09-04] MEDS: GABAPENTIN 300 MG CAPSULE PO SCH ×3 (09:12→20:58)
[2017-09-04] MEDS: POTASSIUM CHLORIDE 10 MEQ TABLET PO SCH (09:12)
[2017-09-04] MEDS: amLODIPine 10 MG TABLET PO SCH (09:12)
[2017-09-04] MEDS: ASPIRIN EC 81 MG TABLET PO SCH (09:13)
[2017-09-04] MEDS: AMIODARONE 200 MG TABLET PO SCH (09:13)
[2017-09-04] MEDS: APIXABAN 2.5 MG TABLET PO SCH ×2 (09:13→20:58)
[2017-09-04] MEDS: FUROSEMIDE 40 MG/4 ML VIAL IV SCH (15:39)
[2017-09-04] MEDS: ACETAMINOPHEN 325 MG TABLET PO PRN (18:07)
[2017-09-04] MEDS: ROSUVASTATIN 10 MG TABLET PO SCH (20:58)
[2017-09-05] MEDS: GABAPENTIN 300 MG CAPSULE PO SCH ×3 (08:55→21:20)
[2017-09-05] MEDS: amLODIPine 10 MG TABLET PO SCH (08:55)
[2017-09-05] MEDS: PANTOPRAZOLE 40 MG TABLET PO SCH (08:55)
[2017-09-05] MEDS: METOPROLOL SUCCINATE XL 25 MG TABLET PO SCH ×2 (08:56→21:20)
[2017-09-05] MEDS: FUROSEMIDE 40 MG/4 ML VIAL IV SCH (08:56)
[2017-09-05] MEDS: APIXABAN 2.5 MG TABLET PO SCH ×2 (08:56→21:20)
[2017-09-05] MEDS: AMIODARONE 200 MG TABLET PO SCH (08:56)
[2017-09-05] MEDS: POTASSIUM CHLORIDE 10 MEQ TABLET PO SCH (08:56)
[2017-09-05] MEDS: ASPIRIN EC 81 MG TABLET PO SCH (08:56)
[2017-09-05] MEDS ORDERED: diphenhydrAMINE 2% CREAM 28 GM TUBE TOP PRN (11:51)
[2017-09-05] MEDS: ACETAMINOPHEN 325 MG TABLET PO PRN (15:14)
[2017-09-05] MEDS: FUROSEMIDE 40 MG TABLET PO SCH (15:58)
[2017-09-05] MEDS: ROSUVASTATIN 10 MG TABLET PO SCH (21:20)
[2017-09-05] MEDS: diphenhydrAMINE CAP 25 MG CAPSULE PO PRN (21:22)
[2017-09-06] MEDS: ACETAMINOPHEN 325 MG TABLET PO PRN (04:35)
[2017-09-06] MEDS: diphenhydrAMINE CAP 25 MG CAPSULE PO PRN (04:39)
[2017-09-06 05:09] LABS: Basophils % 0.3 % (0.0-0.8); Eosinophils # 0.2 10*3/uL (0.0-0.87); Eosinophils % 3.7 % (0.00-10.9); Hematocrit 40.9 VOL% (35.7-47.0); Hemoglobin 12.4 GM/DL (12.0-16.0); Immature Granulocytes % 0.2 %; Immature Granulocytes Absolute 0.01 #; Lymphocytes # 1.5 10*3/uL (1.4-4.0); Mean Corpuscular HGB Conc 30.3 GM/DL (32-36); Mean Corpuscular Hemoglobin 27 PG (27-34); Mean Corpuscular Volume 89.3 FL (87-102); Mean Platelet Volume 11.9 FL (9.6-12.0); Monocytes % 15.9 % (1.7-12.7); Neutrophils # 3.5 10*3/uL (1.4-7.4); Neutrophils % 55.9 % (38.7-73.9); Platelet Count 152 T/CUMM (130-400); Red Blood Count 4.58 MC/CUMM (3.8-5.5); Red Cell Distribution Width 17.3 % (9.3-17.3); White Blood Count 6.3 T/CUMM (4-12)
[2017-09-06 05:34] LABS: Calcium 8.7 MG/DL (8.5-10.1)
[2017-09-06 05:35] LABS: Osmolality,Calculated 287.3 MOS/KG (273-304); Potassium 4.2 MMOL/L (3.5-5.1)
[2017-09-06 05:47] LABS: Band Neutrophils 1 % (0-10); Eosinophils 2 % (0-10); Hypochromasia 1+; Lymphocytes 27 % (20-55); Microcytosis 1+; Ovalocytes Few; Platelet Estimate Adequate; Segmented Neutrophils 55 % (50-85); Total Cells Counted 100
[2017-09-06] MEDS: amLODIPine 10 MG TABLET PO SCH (08:17)
[2017-09-06] MEDS: METOPROLOL SUCCINATE XL 25 MG TABLET PO SCH (08:17)
[2017-09-06] MEDS: PANTOPRAZOLE 40 MG TABLET PO SCH (08:17)
[2017-09-06] MEDS: GABAPENTIN 300 MG CAPSULE PO SCH (08:17)
[2017-09-06] MEDS: APIXABAN 2.5 MG TABLET PO SCH (08:18)
[2017-09-06] MEDS: FUROSEMIDE 40 MG TABLET PO SCH (08:18)
[2017-09-06] MEDS: AMIODARONE 200 MG TABLET PO SCH (08:18)
[2017-09-06] MEDS: ASPIRIN EC 81 MG TABLET PO SCH (08:18)
[2017-09-06] MEDS: POTASSIUM CHLORIDE 10 MEQ TABLET PO SCH (08:18)
[2017-09-06 12:26] VITALS: BP 118/51
== END 2017-09-06 13:39 | disposition home health service (06) | DRG 291 ==
LOC: N.ED 09:24 → N.EDINP 12:21 → N.TELEN 14:12
PROVIDERS: ADMIT Internal Medicine Infectious Disease; ATTEND Internal Medicine Infectious Disease

== ENCOUNTER 2017-12-21 08:55 | Observation (INO) ==
[2017-12-21] MEDS ORDERED: ONDANSETRON ODT 4 MG TABLET PO STA (09:30)
[2017-12-21] MEDS ORDERED: ONDANSETRON 4 MG/2 ML VIAL IV STA (09:40)
[2017-12-21 10:45] LABS: Basophils % 0.5 % (0.0-0.8); Eosinophils % 0.5 % (0.00-10.9); Hematocrit 45.7 VOL% (35.7-47.0); Hemoglobin 14.2 GM/DL (12.0-16.0); Immature Granulocytes % 0.5 %; Immature Granulocytes Absolute 0.03 #; Lymphocytes % 15.7 % (21.3-54.2); Mean Corpuscular HGB Conc 31.1 GM/DL (32-36); Mean Corpuscular Hemoglobin 28 PG (27-34); Mean Platelet Volume 11.9 FL (9.6-12.0); Monocytes # 0.8 10*3/uL (0.11-0.8); Monocytes % 12.2 % (1.7-12.7); Neutrophils # 4.6 10*3/uL (1.4-7.4); Neutrophils % 70.6 % (38.7-73.9); Platelet Count 171 T/CUMM (130-400); Red Blood Count 5.08 MC/CUMM (3.8-5.5); Red Cell Distribution Width 16.5 % (9.3-17.3); White Blood Count 6.5 T/CUMM (4-12)
[2017-12-21 10:47] LABS: INR 1.1; PT Patient Result 11.3 SECS
[2017-12-21 10:49] LABS: Apearance,Urine CLEAR (Clear); Bilirubin,Urine Negative (Negative); Blood, Urine Negative (Negative); Glucose,Urine (UA) Negative (Negative); Hyaline Casts,Urine 2 /LPF (0-3); Ketones,Urine Negative (Negative); Mucus,Urine Occasional /LPF (Occasional); Nitrite,Urine Negative (Negative); Protein,Urine Negative; RBC,Urine 1 /HPF (0-4); Squamous Epithelial Cell,Urine Occasional /HPF (0-10); Urine Color Yellow (Yellow); Urine Specific Gravity 1.013 (1.001-1.035); WBC,Urine <1 /HPF (0-6)
[2017-12-21] MEDS ORDERED: ONDANSETRON ODT 4 MG TABLET PO ONE (10:56)
[2017-12-21 12:38] LABS: Alanine Aminotransferase 25 U/L (13-56); Albumin 3.2 G/DL (3.4-5.0); Alkaline Phosphatase 105 U/L (45-117); Aspartate Amino Transferase 34 U/L (0-37); Blood Urea Nitrogen 13 MG/DL (7-18); Calcium 9.2 MG/DL (8.5-10.1); Glucose 100 MG/DL (74-106); Osmolality,Calculated 278.4 MOS/KG (273-304); Potassium 3.7 MMOL/L (3.5-5.1); Sodium 140 MMOL/L (136-145); Total Protein 7.7 G/DL (6.4-8.3)
[2017-12-21 12:41] LABS: Troponin I Only 0.164 NG/ML (0.00-0.045)
[2017-12-21] MEDS ORDERED: ONDANSETRON 4 MG/2 ML VIAL IV PRN (15:02)
[2017-12-21] MEDS ORDERED: ACETAMINOPHEN 325 MG TABLET PO PRN (15:02)
[2017-12-21 20:18] LABS: Troponin I Only 0.143 NG/ML (0.00-0.045)
[2017-12-21] MEDS: ROSUVASTATIN 10 MG TABLET PO SCH (20:47)
[2017-12-21] MEDS: APIXABAN 2.5 MG TABLET PO SCH (20:47)
[2017-12-21] MEDS ORDERED: LOSARTAN 50 MG TABLET PO SCH (21:00)
[2017-12-22 04:09] LABS: Basophils % 0.5 % (0.0-0.8); Eosinophils # 0.1 10*3/uL (0.0-0.87); Eosinophils % 0.9 % (0.00-10.9); Hematocrit 37.1 VOL% (35.7-47.0); Hemoglobin 11.9 GM/DL (12.0-16.0); Immature Granulocytes % 0.3 %; Immature Granulocytes Absolute 0.02 #; Lymphocytes # 1.2 10*3/uL (1.4-4.0); Lymphocytes % 20.4 % (21.3-54.2); Mean Corpuscular HGB Conc 32.1 GM/DL (32-36); Mean Corpuscular Hemoglobin 28 PG (27-34); Mean Corpuscular Volume 88.3 FL (87-102); Mean Platelet Volume 11.6 FL (9.6-12.0); Monocytes % 16.6 % (1.7-12.7); Neutrophils # 3.5 10*3/uL (1.4-7.4); Neutrophils % 61.3 % (38.7-73.9); Platelet Count 167 T/CUMM (130-400); Red Cell Distribution Width 16.6 % (9.3-17.3); White Blood Count 5.7 T/CUMM (4-12)
[2017-12-22 04:42] LABS: Calcium 8.3 MG/DL (8.5-10.1); Osmolality,Calculated 283.3 MOS/KG (273-304); Potassium 3.5 MMOL/L (3.5-5.1); Thyroid Stimulating Hormone 1.02 uIU/ml (0.358-3.74)
[2017-12-22 05:17] LABS: Troponin I Only 0.151 NG/ML (0.00-0.045)
[2017-12-22 05:54] LABS: Lymphocytes 22 % (20-55); Platelet Estimate Normal; Segmented Neutrophils 68 % (50-85); Total Cells Counted 100
[2017-12-22] MEDS: POTASSIUM CHLORIDE 10 MEQ TABLET PO SCH (08:45)
[2017-12-22] MEDS: ASPIRIN EC 81 MG TABLET PO SCH (08:45)
[2017-12-22] MEDS: CETIRIZINE 10 MG TABLET PO SCH (08:45)
[2017-12-22] MEDS: PANTOPRAZOLE 40 MG TABLET PO SCH (08:45)
[2017-12-22] MEDS: APIXABAN 2.5 MG TABLET PO SCH ×2 (08:45→20:15)
[2017-12-22] MEDS ORDERED: FUROSEMIDE 40 MG TABLET PO SCH (09:00)
[2017-12-22] MEDS ORDERED: AMIODARONE 200 MG TABLET PO SCH (09:00)
[2017-12-22] MEDS: ROSUVASTATIN 10 MG TABLET PO SCH (20:15)
[2017-12-23 05:11] LABS: Basophils % 0.4 % (0.0-0.8); Eosinophils # 0.1 10*3/uL (0.0-0.87); Hematocrit 37.6 VOL% (35.7-47.0); Hemoglobin 12.1 GM/DL (12.0-16.0); Immature Granulocytes % 0.4 %; Immature Granulocytes Absolute 0.02 #; Lymphocytes # 1.2 10*3/uL (1.4-4.0); Lymphocytes % 21.3 % (21.3-54.2); Mean Corpuscular HGB Conc 32.2 GM/DL (32-36); Mean Corpuscular Hemoglobin 28 PG (27-34); Mean Corpuscular Volume 88.1 FL (87-102); Monocytes # 0.9 10*3/uL (0.11-0.8); Monocytes % 15.1 % (1.7-12.7); Neutrophils # 3.4 10*3/uL (1.4-7.4); Neutrophils % 60.8 % (38.7-73.9); Platelet Count 169 T/CUMM (130-400); Red Blood Count 4.27 MC/CUMM (3.8-5.5); Red Cell Distribution Width 16.5 % (9.3-17.3); White Blood Count 5.6 T/CUMM (4-12)
[2017-12-23 05:28] LABS: Calcium 8.4 MG/DL (8.5-10.1); Osmolality,Calculated 281.3 MOS/KG (273-304); Potassium 3.8 MMOL/L (3.5-5.1)
[2017-12-23 05:32] LABS: Calcium 8.5 MG/DL (8.5-10.1); Osmolality,Calculated 283.1 MOS/KG (273-304); Potassium 3.8 MMOL/L (3.5-5.1)
[2017-12-23 05:35] LABS: Troponin I Only 0.153 NG/ML (0.00-0.045)
[2017-12-23] MEDS: ASPIRIN EC 81 MG TABLET PO SCH (08:51)
[2017-12-23] MEDS: APIXABAN 2.5 MG TABLET PO SCH ×2 (08:51→20:16)
[2017-12-23] MEDS: PANTOPRAZOLE 40 MG TABLET PO SCH (08:51)
[2017-12-23] MEDS: POTASSIUM CHLORIDE 10 MEQ TABLET PO SCH (08:51)
[2017-12-23] MEDS: CETIRIZINE 10 MG TABLET PO SCH (08:51)
[2017-12-23] MEDS: MECLIZINE 25 MG TABLET PO SCH ×2 (10:35→20:16)
[2017-12-23] MEDS: ROSUVASTATIN 10 MG TABLET PO SCH (20:16)
[2017-12-24 04:59] LABS: Calcium 8.5 MG/DL (8.5-10.1); Osmolality,Calculated 279.3 MOS/KG (273-304); Potassium 3.9 MMOL/L (3.5-5.1)
[2017-12-24 07:47] VITALS: BP 160/72
[2017-12-24] MEDS: MECLIZINE 25 MG TABLET PO SCH (08:54)
[2017-12-24] MEDS: APIXABAN 2.5 MG TABLET PO SCH (08:54)
[2017-12-24] MEDS: POTASSIUM CHLORIDE 10 MEQ TABLET PO SCH (08:54)
[2017-12-24] MEDS: PANTOPRAZOLE 40 MG TABLET PO SCH (08:54)
[2017-12-24] MEDS: ASPIRIN EC 81 MG TABLET PO SCH (08:54)
[2017-12-24] MEDS: CETIRIZINE 10 MG TABLET PO SCH (08:54)
== END 2017-12-24 11:06 | disposition home or self-care (01) ==
LOC: N.EDINP 08:55 → N.ED 08:55 → SUATTDRO 13:35 → N.EDINP 15:05 → N.5E 15:27
PROVIDERS: ADMIT Internal Medicine; ATTEND Internal Medicine Geriatric Medicine

== ENCOUNTER 2018-03-06 08:59 | Inpatient (IN) ==
[2018-03-06] MEDS ORDERED: FUROSEMIDE 100 MG/10 ML VIAL IV STA (09:28)
[2018-03-06 10:04] LABS: Basophils % 0.6 % (0.0-0.8); Eosinophils # 0.3 10*3/uL (0.0-0.87); Eosinophils % 4.5 % (0.00-10.9); Hematocrit 39.9 VOL% (35.7-47.0); Hemoglobin 12.3 GM/DL (12.0-16.0); Immature Granulocytes % 0.1 %; Immature Granulocytes Absolute 0.01 #; Lymphocytes # 0.9 10*3/uL (1.4-4.0); Lymphocytes % 12.7 % (21.3-54.2); Mean Corpuscular HGB Conc 30.8 GM/DL (32-36); Mean Corpuscular Hemoglobin 27 PG (27-34); Mean Corpuscular Volume 88.7 FL (87-102); Mean Platelet Volume 11.7 FL (9.6-12.0); Monocytes # 0.7 10*3/uL (0.11-0.8); Monocytes % 9.8 % (1.7-12.7); Neutrophils # 5.1 10*3/uL (1.4-7.4); Neutrophils % 72.3 % (38.7-73.9); Platelet Count 168 T/CUMM (130-400); Red Cell Distribution Width 17.1 % (9.3-17.3); White Blood Count 7.1 T/CUMM (4-12)
[2018-03-06 10:14] LABS: Partial Thromboplastin Time 27.5 SECS (0-40)
[2018-03-06 10:24] LABS: Bilirubin,Total 0.4 MG/DL (0.2-1.0); Potassium 4.5 MMOL/L (3.5-5.1); Total Protein 7.5 G/DL (6.4-8.3)
[2018-03-06 10:25] LABS: Troponin I Only 0.183 NG/ML (0.00-0.045)
[2018-03-06] MEDS ORDERED: traZODone 50 MG TABLET PO PRN (12:55)
[2018-03-06] MEDS ORDERED: MECLIZINE 25 MG TABLET PO PRN (13:00)
[2018-03-06] MEDS ORDERED: ALPRAZolam 0.25 MG TABLET PO PRN (13:00)
[2018-03-06] MEDS ORDERED: ENOXAPARIN 30 MG/0.3 ML SYRINGE SUBCUT SCH (13:00)
[2018-03-06 13:47] LABS: Thyroid Stimulating Hormone 1.73 uIU/ml (0.358-3.74)
[2018-03-06] MEDS: GABAPENTIN 300 MG CAPSULE PO SCH ×2 (15:05→21:36)
[2018-03-06] MEDS: hydrALAZINE 10 MG TABLET PO SCH ×2 (16:06→21:36)
[2018-03-06] MEDS: APIXABAN 2.5 MG TABLET PO SCH (21:36)
[2018-03-06] MEDS: ROSUVASTATIN 10 MG TABLET PO SCH (21:36)
[2018-03-06] MEDS: LOSARTAN 25 MG TABLET PO SCH (21:37)
[2018-03-07 01:26] LABS: Albumin 3.3 G/DL (3.4-5.0); Bilirubin,Total 0.4 MG/DL (0.2-1.0); Calcium 8.9 MG/DL (8.5-10.1); Potassium 3.9 MMOL/L (3.5-5.1); Risk Ratio 2.38; VLDL CHOLESTEROL 23.6 MG/DL
[2018-03-07 01:32] LABS: Basophils % 0.3 % (0.0-0.8); Eosinophils # 0.4 10*3/uL (0.0-0.87); Eosinophils % 5.8 % (0.00-10.9); Hematocrit 39.1 VOL% (35.7-47.0); Hemoglobin 12.3 GM/DL (12.0-16.0); Immature Granulocytes % 0.3 %; Immature Granulocytes Absolute 0.02 #; Lymphocytes # 1.4 10*3/uL (1.4-4.0); Lymphocytes % 20.9 % (21.3-54.2); Mean Corpuscular HGB Conc 31.5 GM/DL (32-36); Mean Corpuscular Hemoglobin 27 PG (27-34); Mean Corpuscular Volume 86.3 FL (87-102); Mean Platelet Volume 12.3 FL (9.6-12.0); Monocytes # 0.8 10*3/uL (0.11-0.8); Monocytes % 11.9 % (1.7-12.7); Neutrophils # 4.1 10*3/uL (1.4-7.4); Neutrophils % 60.8 % (38.7-73.9); Platelet Count 172 T/CUMM (130-400); Red Blood Count 4.53 MC/CUMM (3.8-5.5); Red Cell Distribution Width 17.1 % (9.3-17.3); White Blood Count 6.7 T/CUMM (4-12)
[2018-03-07] MEDS: APIXABAN 2.5 MG TABLET PO SCH ×2 (08:44→21:17)
[2018-03-07] MEDS: LOSARTAN 25 MG TABLET PO SCH ×2 (08:45→21:17)
[2018-03-07] MEDS: hydrALAZINE 10 MG TABLET PO SCH ×3 (08:45→21:17)
[2018-03-07] MEDS: PANTOPRAZOLE 40 MG TABLET PO SCH (08:45)
[2018-03-07] MEDS: amLODIPine 10 MG TABLET PO SCH (08:45)
[2018-03-07] MEDS: POTASSIUM CHLORIDE 10 MEQ TABLET PO SCH (08:45)
[2018-03-07] MEDS ORDERED: AMIODARONE 200 MG TABLET PO SCH (09:00)
[2018-03-07] MEDS ORDERED: CETIRIZINE 10 MG TABLET PO SCH (09:00)
[2018-03-07] MEDS: ROSUVASTATIN 10 MG TABLET PO SCH (21:17)
[2018-03-07] MEDS ORDERED: HydrOXYzine PAMOATE 25 MG CAPSULE PO ONE (22:22)
[2018-03-08 03:44] LABS: Basophils % 0.5 % (0.0-0.8); Eosinophils # 0.4 10*3/uL (0.0-0.87); Eosinophils % 6.5 % (0.00-10.9); Hematocrit 40.6 VOL% (35.7-47.0); Hemoglobin 12.6 GM/DL (12.0-16.0); Immature Granulocytes % 0.5 %; Immature Granulocytes Absolute 0.03 #; Lymphocytes # 1.2 10*3/uL (1.4-4.0); Lymphocytes % 19.6 % (21.3-54.2); Mean Corpuscular Hemoglobin 27 PG (27-34); Mean Corpuscular Volume 86.8 FL (87-102); Mean Platelet Volume 11.8 FL (9.6-12.0); Monocytes # 0.9 10*3/uL (0.11-0.8); Monocytes % 14.3 % (1.7-12.7); Neutrophils # 3.7 10*3/uL (1.4-7.4); Neutrophils % 58.6 % (38.7-73.9); Platelet Count 157 T/CUMM (130-400); Red Blood Count 4.68 MC/CUMM (3.8-5.5); White Blood Count 6.3 T/CUMM (4-12)
[2018-03-08 04:13] LABS: Calcium 8.7 MG/DL (8.5-10.1); Osmolality,Calculated 282.3 MOS/KG (273-304); Potassium 4.2 MMOL/L (3.5-5.1)
[2018-03-08] MEDS ORDERED: FUROSEMIDE 40 MG TABLET PO SCH (08:00)
[2018-03-08] MEDS ORDERED: ASPIRIN EC 81 MG TABLET PO SCH (08:00)
[2018-03-08] MEDS: amLODIPine 10 MG TABLET PO SCH (09:25)
[2018-03-08] MEDS: LOSARTAN 25 MG TABLET PO SCH (09:25)
[2018-03-08] MEDS: hydrALAZINE 10 MG TABLET PO SCH (09:25)
[2018-03-08] MEDS: PANTOPRAZOLE 40 MG TABLET PO SCH (09:26)
[2018-03-08] MEDS: APIXABAN 2.5 MG TABLET PO SCH (09:26)
[2018-03-08] MEDS: POTASSIUM CHLORIDE 10 MEQ TABLET PO SCH (09:26)
[2018-03-08 11:29] VITALS: BP 152/74
== END 2018-03-08 14:10 | disposition home or self-care (01) | DRG 308 ==
LOC: EDUNIT# → EDBD → N.ED 08:59 → N.EDINP 12:55 → N.TELEN 16:29
PROVIDERS: ADMIT Internal Medicine; ATTEND Internal Medicine